=== PATIENT | female | born 1935 | race Caucasian/White ===

== ENCOUNTER 2019-12-01 20:45 | Inpatient (IN) | payer MEDICARE, OTHER ==
[~2019-12-01] VITALS: Ht 152.4 cm; Wt 89.8 kg
[2019-12-01] MEDS ORDERED: ACETAMINOPHEN 325 MG TAB PO ONE (22:00)
[2019-12-01 22:57] LABS: BILIRUBIN,URINE NEGATIVE (NEGATIVE); CLARITY,URINE CLEAR (CLEAR); COLOR,URINE YELLOW (YELLOW); KETONES,URINE NEGATIVE (NEGATIVE); LEUKOCYTE ESTERASE ,URINE SMALL (NEGATIVE); NITRITE,URINE NEGATIVE (NEGATIVE); PROTEIN,URINE DIPSTICK 2+ (NEGATIVE); URINE UROBILINOGEN 0.2 mg/dL (0.2 - 1)
[2019-12-01 23:06] LABS: BASOPHILS % 0.2 % (0.0-1.0); HEMATOCRIT 29.8 % (34.2-44.1); HEMOGLOBIN 10.6 g/dL (12.0-16.0); LYMPHOCYTES # (AUTO) 1.1 (1.0-3.2); LYMPHOCYTES % 12.5 % (18.0-39.1); MEAN CORPUSCULAR HEMOGLOBIN 33.3 pg (28-32); MEAN CORPUSCULAR HGB CONC 35.6 g/dL (31-35); MEAN CORPUSCULAR VOLUME 93.7 fL (81-99); MONOCYTES # (AUTO) 1.2 (0.2-0.8); MONOCYTES % 14.2 % (4.4-11.3); NEUTROPHILS # (AUTO) 6.2 (2.1-6.9); NEUTROPHILS % 72.3 % (38.7-80.0); PLATELET COUNT 285 x10e3/uL (140-360); RED BLOOD COUNT 3.18 x10e6/uL (3.6-5.1); RED CELL DISTRIBUTION WIDTH 12.7 % (11.7-14.4)
[2019-12-01 23:08] LABS: BACTERIA,URINE FEW /HPF; EPITHELIAL CELLS,URINE FEW /LPF
[2019-12-01 23:27] LABS: ALANINE AMINOTRANSFERASE 31 IU/L (0-55); ALBUMIN 2.8 g/dL (3.5-5.0); ALBUMIN/GLOBULIN RATIO 0.7 (0.8-2.0); ALKALINE PHOSPHATASE 71 IU/L (40-150); ANION GAP 15.2 mmol/L (8-16); BLOOD UREA NITROGEN 9 mg/dL (7-26); BUN/CREATININE RATIO 12 (6-25); CALCIUM 8.4 mg/dL (8.4-10.2); CARBON DIOXIDE 21 mmol/L (22-29); CHLORIDE 92 mmol/L (98-107); CREATINE KINASE 171 IU/L (29-168); CREATININE, SERUM 0.77 mg/dL (0.57-1.11); EST GLOMERULAR FILTRATION RATE > 60 ML/MIN (60-); GLUCOSE 134 mg/dL (74-118); POTASSIUM 3.2 mmol/L (3.5-5.1); SODIUM 125 mmol/L (136-145)
--- NOTE | 2019-12-01 23:45 | Diagnostic Imaging Report ---
EXAMINATION: CHEST SINGLE (PORTABLE) INDICATION: Short of breath COMPARISON: None FINDINGS: TUBES and LINES: None. LUNGS: Bilateral mid/lower lung haziness. Prominent central pulmonary vasculature. PLEURA: No pleural effusion or pneumothorax. HEART AND MEDIASTINUM: Cardiac size is mildly enlarged. Aortic calcifications. BONES AND SOFT TISSUES: Fixation hardware in the left proximal humerus. No acute osseous lesion. Soft tissues are unremarkable. UPPER ABDOMEN: No free air under the diaphragm. IMPRESSION: Bilateral mid/lower lung haziness can be due to atelectasis or pneumonia. Lung evaluation limited due to radiographic technique and patient body habitus. Mild cardiomegaly and pulmonary vascular congestion. Signed by: Percy Jensen DO on 12/01/2019 11:41 PM
--- NOTE | 2019-12-01 23:51 | Emergency Department Note ---
History of Present Illnes History of Present Illness Chief Complaint: COVID PUI History of Present Illness This is a 83 year old female HAS BEEN HAVING CHEST SORENESS, COUGH, CONGESTION, AND FEVER FOR 2 WEEKS, COMES IN TO ED FOR FURTHER MANAGEMENT. STATES ALL HOUSEHOLD HAS TESTED POSITIVE FOR COVID. HOWEVER, PATIENT HERSELF HAS NOT UNDERGONE A TEST TO CONFIRM HER STATUS. RESPIRATIONS EVEN AND UNLABORED, WITH DRY COUGH NOTED, PATIENT VERBALIZES GENERALIZED WEAKNESS AND FEELING TIRED. . Historian: Patient Arrival Mode: Car Onset (how long ago): week(s) (2) Location: CHEST Quality: FEVER, COUGH, CHEST PAIN, SOB, BODY ACHES Radiation: Reports non-radiation Severity: moderate Onset quality: gradual Duration (how long): week(s) (2) Timing of current episode: constant Progression: worsening Context: Reports recent illness, Reports other (EXPOSURE TO MULTIPLE FAMILY MEMEBERS IN SAME HOME WHO ARE POSITIVE FOR COVID 19) Associated symptoms: Reports chest pain, Reports cough, Reports fever/chills, Reports loss of appetite, Reports malaise, Reports shortness of breath, Reports weakness Treatments prior to arrival: none Past Medical/Family History Physician Review I have reviewed the patient's past medical and family history. Any updates have been documented here. Past Medical History Recent Fever: Yes Clinical Suspicion of Infectio: Yes New/Unexplained Change in Ment: Yes Past Medical History: Hypertension, CHF, GA Other Surgery: HIP REPLACEMENT MULTIPLE HEART STENTS Social History Smoking Cessation: Former smoker Counseling Performed: No Alcohol Use: None Any Illegal Drug Use: No Physically hurt or threatened: No Other Any Pre-Existing Lines (PICC,: No Review of Systems Review of Systems Constitutional: Reports as per HPI EENTM: Reports no symptoms Cardiovascular: Reports as per HPI Respiratory: Reports as per HPI Gastrointestinal: Reports no symptoms Genitourinary: Reports no symptoms Musculoskeletal: Reports no symptoms Integumentary: Reports no symptoms Neurological: Reports no symptoms Psychological: Reports no symptoms Endocrine: Reports no symptoms Hematological/Lymphatic: Reports no symptoms Physical Exam Related Data Allergies: Coded Allergies: Penicillins (Verified Adverse Reaction, Severe, RASH, 12/01/19) morphine (Verified Adverse Reaction, Mild, UNCONTROLLED NAUSEA, 12/01/19) Triage Vital Signs Vital Signs Date Time Temp Pulse Resp B/P (MAP) Pulse Ox O2 Delivery O2 Flow Rate FiO2 12/01/19 21:39 100.7 110 22 150/66 95 Room Air Vital signs reviewed: Yes Physical Exam CONSTITUTIONAL Constitutional: Present well-developed, Present well-nourished HENT HENT: Present normocephalic, Present atraumatic, Present oropharynx clear/moist, Present nose normal HENT L/R: Present left ext ear normal, Present right ext ear normal EYES Eyes: Reports PERRL, Reports conjunctivae normal NECK Neck: Present ROM normal PULMONARY Pulmonary: Present effort normal, Present other (DECREASED BS AT BASE BILATERAL) CARDIOVASCULAR Cardiovascular: Present regular rhythm, Present heart sounds normal, Present capillary refill normal, Present tachycardia (110) GASTROINTESTINAL Abdominal: Present soft, Present nontender, Present bowel sounds normal GENITOURINARY Genitourinary: Present exam deferred SKIN Skin: Present warm, Present dry MUSCULOSKELETAL Musculoskeletal: Present ROM normal NEUROLOGICAL Neurological: Present alert, Present oriented x 3, Present no gross motor or sensory deficits PSYCHOLOGICAL Psychological: Present mood/affect normal, Present judgement normal Results Laboratory Result Diagram: 12/01/19224912/01/192249 Laboratory Laboratory Tests Test 12/01/19 22:50 12/01/19 22:30 White Blood Count 8.62 x10e3/uL (4.8-10.8) Red Blood Count 3.18 x10e6/uL (3.6-5.1) Hemoglobin 10.6 g/dL (12.0-16.0) Hematocrit 29.8 % (34.2-44.1) Mean Corpuscular Volume 93.7 fL (81-99) Mean Corpuscular Hemoglobin 33.3 pg (28-32) Mean Corpuscular Hemoglobin Concent 35.6 g/dL (31-35) Red Cell Distribution Width 12.7 % (11.7-14.4) Platelet Count 285 x10e3/uL (140-360) Neutrophils (%) (Auto) 72.3 % (38.7-80.0) Lymphocytes (%) (Auto) 12.5 % (18.0-39.1) Monocytes (%) (Auto) 14.2 % (4.4-11.3) Eosinophils (%) (Auto) 0.0 % (0.0-6.0) Basophils (%) (Auto) 0.2 % (0.0-1.0) Neutrophils # (Auto) 6.2 (2.1-6.9) Lymphocytes # (Auto) 1.1 (1.0-3.2) Monocytes # (Auto) 1.2 (0.2-0.8) Eosinophils # (Auto) 0.0 (0.0-0.4) Basophils # (Auto) 0.0 (0.0-0.1) Absolute Immature Granulocyte (auto 0.07 x10e3/uL (0-0.1) Sodium Level 125 mmol/L (136-145) Potassium Level 3.2 mmol/L (3.5-5.1) Chloride Level 92 mmol/L (98-107) Carbon Dioxide Level 21 mmol/L (22-29) Anion Gap 15.2 mmol/L (8-16) Blood Urea Nitrogen 9 mg/dL (7-26) Creatinine 0.77 mg/dL (0.57-1.11) Estimat Glomerular Filtration Rate > 60 ML/MIN (60-) BUN/Creatinine Ratio 12 (6-25) Glucose Level 134 mg/dL (74-118) Calcium Level 8.4 mg/dL (8.4-10.2) Total Bilirubin 0.4 mg/dL (0.2-1.2) Aspartate Amino Transf (AST/SGOT) 46 IU/L (5-34) Alanine Aminotransferase (ALT/SGPT) 31 IU/L (0-55) Alkaline Phosphatase 71 IU/L (40-150) Creatine Kinase 171 IU/L (29-168) Creatine Kinase MB 1.10 ng/mL (0-5.0) Troponin I 0.030 ng/mL (0-0.300) Total Protein 6.9 g/dL (6.5-8.1) Albumin 2.8 g/dL (3.5-5.0) Globulin 4.1 g/dL (2.3-3.5) Albumin/Globulin Ratio 0.7 (0.8-2.0) Urine Color Yellow (YELLOW) Urine Clarity Clear (CLEAR) Urine pH 7 (5 - 7) Urine Specific [place] 1.020 (1.010-1.025) Urine Protein 2+ (NEGATIVE) Urine Glucose (UA) Negative (NEGATIVE) Urine Ketones Negative (NEGATIVE) Urine Blood Small (NEGATIVE) Urine Nitrite Negative (NEGATIVE) Urine Bilirubin Negative (NEGATIVE) Urine Urobilinogen 0.2 mg/dL (0.2 - 1) Urine Leukocyte Esterase Small (NEGATIVE) Urine RBC 6-10 /HPF (0-5) Urine WBC 11-20 /HPF (0-5) Urine Epithelial Cells Few /LPF (NONE) Urine Bacteria Few /HPF (NONE) Lab results reviewed: Yes Imaging Imaging results reviewed: Yes Impressions Procedure: [id number] DX/CHEST SINGLE (PORTABLE) Exam Date: 12/01/19 Exam Time: 2223 REPORT STATUS: Signed EXAMINATION: CHEST SINGLE (PORTABLE) INDICATION: Short of breath COMPARISON: None FINDINGS: TUBES and LINES: None. LUNGS: Bilateral mid/lower lung haziness. Prominent central pulmonary vasculature. PLEURA: No pleural effusion or pneumothorax. HEART AND MEDIASTINUM: Cardiac size is mildly enlarged. Aortic calcifications. BONES AND SOFT TISSUES: Fixation hardware in the left proximal humerus. No acute osseous lesion. Soft tissues are unremarkable. UPPER ABDOMEN: No free air under the diaphragm. IMPRESSION: Bilateral mid/lower lung haziness can be due to atelectasis or pneumonia. Lung evaluation limited due to radiographic technique and patient body habitus. Mild cardiomegaly and pulmonary vascular congestion. Signed by: Nancy Jensen DO on 12/01/2019 11:41 PM Dictated By: NANCY JENSEN DO 40 Transcribed By: GHADA on 12/01/192340 COPY TO: KRZYSZTOF GHOTRA MD~ Procedures 12 Lead ECG Interpretation ECG Interpretation : ECG: ECG 1 Dining Host: Interpreted by ED physician Date: Dec 01, 2019 Time: 22:56 Rhythm: sinus rhythm Rate: normal BPM: 90 QRS axis: normal ST segments normal: Yes T waves normal: Yes Q waves: V1, V2, V3 Clinical Impression: abnormal ECG Assessment & Plan Medical Decision Making MDM PT WITH COVID SYMPTOMS, PT TACHYPNEIC WITH WALKING AND OXYGEN SATURATION DROPS T O 89% CBC, CMP, EKG, CARDIAC ENZYMES, CXR, COVID 19, UA, ORDERED TO EVAL FOR COVID 19, VIRAL PNEUMONIA, LEUKOCYTOSIS, ELECTROLYTE ABNORMALITY, MYOCARDIAL INFARCTION, UTI TYLENOL 975 MG PO ORDERED I SPOKE WITH DR GARRETT, ADMIT INPATIENT COVID BED I SPOKE WITH DR GOODE AND LEFT A MESSAGE FOR DR MURILLO Assessment & Plan Final Impression: (1) COVID-19 (2) UTI (urinary tract infection) Depart Disposition: ADMITTED Last Vital Signs Date Time Temp Pulse Resp B/P (MAP) Pulse Ox O2 Delivery O2 Flow Rate FiO2 12/01/19 23:37 99.2 12/01/19 23:07 89 21 94 Room Air Medications in the ED Acetaminophen 975 mg ONCE ONCE PO ; Start 12/01/19 at 22:00; Stop 12/01/19 at 23:39; Status DC KRZYSZTOF GHOTRA MD Dec 01, 2019 23:51
[2019-12-02] VITALS (9 sets, daily range): BP systolic 132–188; BP diastolic 75–99
[2019-12-02] MEDS ORDERED: CEFTRIAXONE SOD 1 GM/NS 50 ML 50 ML IV ONE
[2019-12-02] MEDS ORDERED: AZITHROMYCIN 500MG/NS 250 ML 250 ML IV ONE
[2019-12-02] MEDS ORDERED: AZITHROMYCIN 500MG/SOD CHL 0.9% 250ML BAG IV SCH (00:15)
[2019-12-02] MEDS ORDERED: SODIUM CHLORIDE 0.9% 1000ML 1,000 ML IV ONE (00:15)
[2019-12-02] MEDS ORDERED: CEFTRIAXONE SOD 1 GRAM/0.9% SOD CHL 50ML BAG IV SCH (00:15)
[2019-12-02] MEDS: DEXAMETHASONE SOD PHOS 10 MG/1 ML VIAL IV SCH ×2 (01:08→23:50)
[2019-12-02] MEDS ORDERED: POTASSIUM CHLORIDE 20 MEQ TAB CR PO STA (01:11)
[2019-12-02] MEDS: ENOXAPARIN SOD INJ 40 MG/0.4 ML SYR SC SCH ×3 (01:12→15:57)
[2019-12-02] MEDS ORDERED: POTASSIUM CHLORIDE 20 MEQ TAB CR PO ONE (01:24)
--- NOTE | 2019-12-02 01:30 | NUR ---
Received patient from the ER via stretcher. Patient is alert and oriented. Assisted to bathroom with walker. Patient transferred to bed via wheelchair. Patient is on telemetry with continuous pulse oximeter and O2 at 2L/min. Oriented patient to room. Call light within reached. All consults has been notified according to report by Aneudy from ER.
--- NOTE | 2019-12-02 04:52 | NUR ---
PATIENT COMPLAIN OF THE IV PUMP COMING OFF BECAUSE SHE MOVING HER RIGHT ARM. SHE STATES SHE IS RIGHT HANDED AND SHE MOVES HER RIGHT ARM ALOT. PATIENT IV ON SALINE LOCKED AT THIS TIME.
--- NOTE | 2019-12-02 06:08 | NUR ---
PATIENT CANNOT REMEMBER HOME MEDICATIONS. CALLED PATIENT DAUGHTER FOR LIST, NO ANSWER VOICEMAIL LEFT.
[2019-12-02 06:32] LABS: CREATINE KINASE MB 2.6 ng/mL (0-5.0)
[2019-12-02] MEDS: ACETAMINOPHEN 325 MG TAB PO PRN (08:39)
[2019-12-02] MEDS ORDERED: LIPITOR20 MG PO (08:58)
[2019-12-02] MEDS ORDERED: ISOSORBIDE MONO30 MG PO (08:58)
[2019-12-02] MEDS ORDERED: ASPIRIN81 MG PO (08:58)
[2019-12-02] MEDS ORDERED: PLAVIX75 MG PO (08:58)
[2019-12-02] MEDS ORDERED: LEVOTHYROXINE50 MCG PO (08:58)
[2019-12-02] MEDS ORDERED: FUROSEMIDE40 MG PO (08:58)
[2019-12-02] MEDS ORDERED: LOSARTAN POTAS100 MG PO (08:58)
[2019-12-02] MEDS ORDERED: ROPINIROLE HC0.25 MG PO (08:58)
[2019-12-02] MEDS ORDERED: METOPROLOL TART50 MG PO (08:58)
[2019-12-02] MEDS: NITROGLYCERIN 0.4 MG SUBL SL PRN (09:14)
--- NOTE | 2019-12-02 10:16 | NUR ---
Patient is requesting to be a DNR. Dr. Landa will be placing the order, this show card writer will be making sure the patient and doctor signed the form.
--- NOTE | 2019-12-02 12:24 | Consultation ---
DATE OF CONSULTATION: Pulmonary Consultation The patient of Dr. Germain and Dr. Llamas. 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 Cough for a period of 2 weeks. Temperature on admission was 100.7. She has had a history of hypertension, heart failure, history of old [place] with stent. Usually active. ALLERGIES: TO PENICILLIN AND MORPHINE. MEDICATIONS: Include metoprolol, Levoxyl, aspirin, Lipitor, ISMO, Plavix, Lasix, ropinirole, and losartan. SOCIAL HISTORY: She is an ex-smoker, but smoked only a pack a week, quit 30 years ago. Born in [place], [place]. FAMILY HISTORY: Positive multiple members with COVID-19. PHYSICAL EXAMINATION: GENERAL: Moderately obese white female, sitting on the commode. No acute distress. VITAL SIGNS: Temperature 97.8, T-max 100.7, pulse 100, and blood pressure 155/98. HEAD: Normocephalic and atraumatic. EYES: Extraocular movements intact. LUNGS: Clear. HEART: Regular rhythm. ABDOMEN: Nontender. EXTREMITIES: Nonedematous. IMPRESSION: Presumed COVID-19 pneumonia with vague interstitial infiltrates. PLAN: To continue supportive care. The patient requests do not intubate order, but is okay with CPR if necessary. Thank you for this kind referral. MD JERICHO Romero/MEGANL /[id number]
[2019-12-02] MEDS: METOPROLOL TARTRATE 50 MG TAB PO SCH ×2 (15:57→21:27)
--- NOTE | 2019-12-02 16:15 | Consultation ---
DATE OF CONSULTATION: Cardiology Consultation REASON FOR CONSULTATION: Chest pain. HISTORY OF PRESENT ILLNESS: This is an 83-year-old woman who has a history of coronary artery disease, status post prior percutaneous coronary intervention, hypertension, hypothyroidism, and congestive heart failure, who presented to the emergency department with chest discomfort, cough, congestion, and fever. She was found to have COVID-19 viral pneumonia. Her chest pain was mildly relieved with nitroglycerin today. She denies any current ongoing chest discomfort. Her pain was described as a central chest discomfort, mild to moderate in severity and occurred at rest, nonexertional, nonradiating, described as a pressure. No other exacerbating or relieving factors. REVIEW OF SYSTEMS: A 12-point review of system was conducted, is negative except as stated above in the HPI. PAST MEDICAL HISTORY: As stated above in the HPI. PAST SURGICAL HISTORY: Percutaneous coronary intervention. PAST FAMILY HISTORY: Noncontributory to current illness. SOCIAL HISTORY: Former smoker. No current illicit drug, alcohol, or tobacco use. ALLERGIES: PENICILLINS, MORPHINE. MEDICATIONS: See medication reconciliation form. PHYSICAL EXAMINATION: VITAL SIGNS: Temperature is 98.1, heart rate is 103, respirations are 18, blood pressure is 132/75, oxygen saturation 100% on 2 L nasal cannula. GENERAL: Well-appearing white woman, in no apparent distress. Alert and oriented x3. HEAD: Normocephalic and atraumatic. EYES: Extraocular movements are intact. Conjunctivae clear. NECK: No JVD. No bruits. CARDIOVASCULAR: Regular rate and rhythm. LUNGS: Clear to auscultation. ABDOMEN: Soft, nontender and nondistended. EXTREMITIES: No clubbing, cyanosis, or edema. VASCULAR: 2+ pulses. SKIN: Warm, dry and intact. NEUROLOGIC: No focal deficits noted. LABORATORY DATA: Reviewed. Hemoglobin is 10.6. Troponin negative x2. Sodium is 125, potassium 3.2. Coronavirus PCR was detected. Chest x-ray shows bilateral infiltrates, mild cardiomegaly, pulmonary vascular congestion. IMPRESSION: 1. Precordial pain. 2. Viral pneumonia due to COVID-19. 3. Hypertension. 4. Congestive heart failure. 5. Coronary artery disease. 6. Obesity. 7. Hyponatremia. 8. Hypokalemia. 9. Congestive heart failure. RECOMMENDATIONS: 1. Continue current cardiovascular medications and diuresis. 2. Continue supportive care for viral pneumonia and COVID-19. There is no evidence of acute coronary syndrome. The patient has a stable cardiac status. DO TERI Ibarra/MODL /[id number]
--- NOTE | 2019-12-02 16:46 | NUR ---
consult This is an 83-year-old woman who has a history of coronary artery disease, status post prior percutaneous coronary intervention, hypertension, hypothyroidism, and congestive heart failure, who presented to the emergency department with chest discomfort, cough, congestion, and fever. She was found to have COVID-19 viral pneumonia. Her chest pain was mildly relieved with nitroglycerin today. She denies any current ongoing chest discomfort. Her pain was described as a central chest discomfort, mild to moderate in severity and occurred at rest, nonexertional, nonradiating, described as a pressure. No other exacerbating or relieving factors. REVIEW OF SYSTEMS: A 12-point review of system was conducted, is negative except as stated above in the HPI. PAST MEDICAL HISTORY: As stated above in the HPI. PAST SURGICAL HISTORY: Percutaneous coronary intervention. PAST FAMILY HISTORY: Noncontributory to current illness. SOCIAL HISTORY: Former smoker. No current illicit drug, alcohol, or tobacco use. ALLERGIES: PENICILLINS, MORPHINE. [id number]
[2019-12-02 18:09] LABS: CREATINE KINASE MB 8.5 ng/mL (0-5.0)
--- NOTE | 2019-12-02 18:21 | NUR ---
Patient troponin called from lab with critical level of 1.5. Dr. Germain and Dr. Augustine (covering for Dr. Witt) both made aware. Dr. Germain requested Dr. Augustine take it from here. Dr. Augustine has yet to respond to be at this time. Will pass on during shift change.
--- NOTE | 2019-12-02 20:34 | NUR ---
Spoke with Dr. Kavon rose regarding patient's abnormal Troponin I result. No new orders. Patient is not complaining of chest pain at this time.
[2019-12-02] MEDS ORDERED: ATORVASTATIN 20 MG TAB PO SCH (21:00)
--- OUTSIDE RECORDS SUMMARY | 2019-12-02 21:01 | XMS REPORT | Clinical Summary ---
Author Author [facility] Address Unknown Phone Unavailable Care Team Providers Care Resident Associate Name Role Phone Britton Germain MD PCP Allergies Comments Active Allergy Reactions Severity Noted Date Adhesive Tape-Silicones Itching, Rash Low 2018 Unknown reaction Codeine 06/09/2018 Unknown reaction Morphine 06/09/2018 Unknown reaction Penicillins 06/09/2018 Medications End Date Status Medication Sig Dispensed Refills Start Date Active furosemide (LASIX) 20 mg Take 20 mg by 0 tablet mouth daily. Active rOPINIRole (REQUIP) 0.5 Take 0.5 mg 0 MG tablet by mouth nightly. Active aspirin (ECOTRIN) 81 MG Take 81 mg by 0 enteric coated tablet mouth daily. Active clopidogrel (PLAVIX) 75 Take 75 mg by 0 mg tablet mouth daily. Active atorvastatin (LIPITOR) 40 Take 40 mg by 0 MG tablet mouth nightly. Active levothyroxine (SYNTHROID, Take 50 mcg 0 LEVOXYL) 50 mcg tablet by mouth daily. Active losartan (COZAAR) 100 MG Take 100 mg 0 tablet by mouth daily. Active Problems Problem Noted Date Unstable angina 06/09/2018 Social History Date Tobacco Use Types Packs/Day Years Used Never Smoker Smokeless Tobacco: Never Used Drinks/Week oz/Week Comments Alcohol Use No Alcohol Habits Answer Date Recorded How often do you have a drink containing alcohol? Never 06/09/2018 How many drinks containing alcohol do you have on No t asked a typical day when you are drinking? How often do you have six or more drinks on one Not asked occasion? Sex Assigned at Date Recorded Not on file Industry Job Start Date Occupation Not on file Not on file Not on file Travel End Travel History Travel Start No recent travel history available. Last Filed Vital Signs Not on file Plan of Treatment Health Maintenance Due Date Last Done Comments FABIANAGLES VACCINES (#1) 1984 65+ PNEUMOCOCCAL VACCINE 12/13/1999 (1 of 2 - PCV13) INFLUENZA VACCINE 12/03/2019 Implants Device Identifier Shelf Expiration Date Model / Serial / L ot Implanted Type Area Manufactur er 10/31/2018 [id number] / / [id number] Device Vasclr Clsr Vasoactive Cardiovasc N/A: N/A Intstnl Peptd 6fr Angio-Seal - ular [id number] Implants Implanted: 06/11/2018 at [facility] (Quantity not on file) [id number] / / Xience Alpine Everolimus Eluting IPM STENTS Coronary Stent System 2.75 Mm X 33 Mm / Rapid-Exchange - [id number] Implanted: Qty: 1 on 06/11/2018 by Zelalem De MD at [facility] Results Not on fileafter 11/30/2018 Insurance Type Payer Benefit Subscriber ID Effective Phone Address Plan / Dates Group HMO CIGNA [employer]SPRING CIGNA xxxxxxxxx 2018-P [facility] Advance Directives For more information, please contact: [phone] 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
--- OUTSIDE RECORDS SUMMARY | 2019-12-02 21:02 | XMS REPORT | Continuity of Care Document ---
Author Author [facility] t Organization [facility] Address [address] [place] [address] Phone Unavailable Care Team Providers Care Machine Stoppage Frequency Checker Name Role Phone Marcellus HERRERA, Jorge Jarquin PCP Emelia GHOTRA Attphys Unavailable Problems Condition Name Condition Details Condition Category Status Onset Date Resolution Date Last Treatment Date Treating Clinician Comments Source Unstable angina Unstable angina Disease Active 2018-06-09 00:00:00 Jason Olsenist Allergies, Adverse Reactions, Alerts Allergy Name Allergy Type Status Severity Reaction(s) Onset Date Inacti ve Date Treating Clinician Comments Source Adhesive Tape-Silicones Propensity to adverse reactions to drug Act linnea Itching, Rash 2018-06-09 00:00:00 Jason [facility] Codeine Propensity to adverse reactions to drug Active 2018-06-09 00:00:00 Unknown reaction Gomez [facility] Morphine Propensity to adverse reactions to drug Active 2018-06-09 00:00:00 Unknown reaction Gomez [facility] Penicillins Propensity to adverse reactions to drug Active 2018-06-09 00:00:00 Unknown reaction Jason O[address] Social History Social Habit Start Date Stop Date Quantity Comments Source History SDOH Alcohol Std Drinks Gomez [facility] History SDOH Alcohol Binge Gomez [facility] Sex Assigned At Doc fitzgerald [employer] [facility] Alcohol intake 2018-06-22 00:00:00 2018-06-22 00:00:00 Current non-drinker of alcohol (finding) Gomez [facility] History SDOH Alcohol Frequency 2018-06-09 00:00:00 2018-06-09 00:00:0 0 1 Jason Olsenist Smoking Status Start Date Stop Date Source Never smoker Jason Verma t Medications Ordered Medication Name Filled Medication Name Start Date Stop Da te Current Medication? Ordering Clinician Indication Dosage Frequency Signature (SIG) Comments Components Source furosemide (LASIX) 20 mg tablet 2018-06-12 15:15:50 Yes 20mg QD Take 20 mg by mouth daily. Jason Mansfield rOPINIRole (REQUIP) 0.5 MG tablet 2018-06-12 15:15:50 Yes .5mg QD Take 0.5 mg by mouth nightly. Jason morris aspirin (ECOTRIN) 81 MG enteric coated tablet 2018-06-12 15:15:5 0 Yes 81mg QD Take 81 mg by mouth daily. Rosi Mansfield clopidogrel (PLAVIX) 75 mg tablet 2018-06-12 15:15:50 Yes 75mg QD Take 75 mg by mouth daily. Jason Mansfield atorvastatin (LIPITOR) 40 MG tablet 2018-06-12 15:15:50 Yes 40mg QD Take 40 mg by mouth nightly. Jason harris levothyroxine (SYNTHROID, LEVOXYL) 50 mcg tablet 2018-06-12 15:15:50 Yes 50ug QD Take 50 mcg by mouth daily. Jason Mansfield losartan (COZAAR) 100 MG tablet 2018-06-12 15:15:50 Yes 100mg QD Take 100 mg by mouth daily. Jason Mansfield Procedures This patient has no known procedures. Plan of Care Planned Activity Planned Date Details Comments Source Future Scheduled Test 2019-12-03 00:00:00 INFLUENZA VACCINE [code = INFLUENZA VACCINE] Jason Mansfield Future Scheduled Test 1999-12-13 00:00:00 65+ PNEUMOCOCCAL V ACCINE (1 of 2 - PCV13) [code = 65+ PNEUMOCOCCAL VACCINE (1 of 2 - PCV13)] Jason Mansfield Future Scheduled Test 1984 00:00:00 SHINGLES VACCINES (#1) [code = SHINGLES VACCINES (#1)] Jason Mansfield Results Test Description Test Time Test Comments Results Result Comments Source CHEST SINGLE (PORTABLE) 2019-12-01 23:40:00 [facility] [address] [address] Patient Name: BETH MARCUS MR #: [id number] : 1935 Age/Sex: 83/F Req #: [id number] Adm Physician: Ordered by: KRZYSZTOF GHOTRA MD Report #: [id number] Location: ER Room/Bed: Procedure: [id number] DX/CHEST SINGLE (PORTABLE) Exam Date: 12/01/19 Exam Time: 2223 REPORT STATUS: Signed EXAMINATION: CHEST SINGLE (PORTABLE) INDICATION: Short of breath COMPARISON: None FINDINGS: TUBES and LINES: None. LUNGS: Bilateral mid/lower lung haziness. Prominent central pulmonary vasculature. PLEURA: No pleural effusion or pneumothorax. HEART AND MEDIASTINUM: Cardiac size is mildly enlarged. Aortic calcifications. BONES AND SOFT TISSUES: Fixation hardware in the left proximal humerus. No acute osseous lesion. Soft tissues are unremarkable. UPPER ABDOMEN: No free air under the diaphragm. IMPRESSION: Bilateral mid/lower lung haziness can be due to atelectasis or pneumonia. Lung evaluation limited due to radiographic technique and patient body habitus. Mild cardiomegaly and pulmonary vascular congestion. Signed by: Percy Jensen DO on 12/01/2019 11:41 PM Dictated By: PERCY JENSEN DO 40 Transcribed By: GHADA on 12/01/192340 COPY TO: KRZYSZTOF GHOTRA MD
--- OUTSIDE RECORDS SUMMARY | 2019-12-02 21:02 | XMS REPORT | Clinical Summary ---
Author Author [facility] Address Unknown Phone Unavailable Care Team Providers Care Resaw Machine Operator Name Role Phone Britton Germain MD PCP [...] ot Implanted Type Area Manufactur er 10/31/2018 [id number] / / [id number] Device Vasclr Clsr Vasoactive Cardiovasc N/A: N/A Intstnl Peptd 6fr Angio-Seal - ular [id number] Implants Implanted: 06/11/2018 at [facility] (Quantity not on file) [id number] / / Xience Alpine Everolimus Eluting IPM STENTS Coronary Stent System 2.75 Mm X 33 Mm / Rapid-Exchange - [id number] Implanted: Qty: 1 on 06/11/2018 by Zelalem De MD at [facility] Results Not on fileafter 12/01/2018 Insurance Type Payer Benefit Subscriber ID Effective Phone Address Plan / Dates Group HMO CIGNA [employer] CIGNA xxxxxxxxx 2018-P [facility] Advance Directives For more information, please contact: [phone] 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
[2019-12-02] MEDS: ATORVASTATIN 40 MG TAB PO SCH (21:27)
[2019-12-02] MEDS: ASPIRIN 81 MG CHEW TAB PO SCH (21:27)
[2019-12-02] MEDS: CEFTRIAXONE SOD 1 GRAM/0.9% SOD CHL 50ML BAG IV SCH (21:28)
[2019-12-02] MEDS: AZITHROMYCIN 500MG/SOD CHL 0.9% 250ML BAG IV SCH (21:59)
[2019-12-02] MEDS: ROPINIROLE HCL 0.25 MG TAB PO SCH (21:59)
[2019-12-03] VITALS (9 sets, daily range): BP systolic 135–171; BP diastolic 67–84
[2019-12-03] MEDS: NITROGLYCERIN 0.4 MG SUBL SL PRN (05:12)
[2019-12-03] MEDS: LEVOTHYROXINE SODIUM 50 MCG TAB PO SCH (05:53)
[2019-12-03] MEDS ORDERED: SINGULAIR10 MG PO (05:54)
--- NOTE | 2019-12-03 06:00 | NUR ---
BP checked 122/64 [facility]. Seen by Dr. Foy. New orders received.
[2019-12-03 06:17] LABS: BASOPHILS % 0.1 % (0.0-1.0); HEMATOCRIT 30.9 % (34.2-44.1); HEMOGLOBIN 10.9 g/dL (12.0-16.0); LYMPHOCYTES # (AUTO) 0.9 (1.0-3.2); MEAN CORPUSCULAR HEMOGLOBIN 33.9 pg (28-32); MEAN CORPUSCULAR HGB CONC 35.3 g/dL (31-35); MONOCYTES # (AUTO) 0.3 (0.2-0.8); MONOCYTES % 2.5 % (4.4-11.3); NEUTROPHILS # (AUTO) 11.2 (2.1-6.9); NEUTROPHILS % 89.6 % (38.7-80.0); PLATELET COUNT 340 x10e3/uL (140-360); RED BLOOD COUNT 3.22 x10e6/uL (3.6-5.1); RED CELL DISTRIBUTION WIDTH 12.8 % (11.7-14.4)
[2019-12-03 06:54] LABS: ALANINE AMINOTRANSFERASE 40 IU/L (0-55); ALBUMIN 2.5 g/dL (3.5-5.0); ALBUMIN/GLOBULIN RATIO 0.6 (0.8-2.0); ALKALINE PHOSPHATASE 72 IU/L (40-150); ANION GAP 13.3 mmol/L (8-16); BLOOD UREA NITROGEN 9 mg/dL (7-26); BUN/CREATININE RATIO 12 (6-25); CALCIUM 8.8 mg/dL (8.4-10.2); CARBON DIOXIDE 24 mmol/L (22-29); CHLORIDE 96 mmol/L (98-107); CREATININE, SERUM 0.73 mg/dL (0.57-1.11); EST GLOMERULAR FILTRATION RATE > 60 ML/MIN (60-); GLUCOSE 146 mg/dL (74-118); POTASSIUM 4.3 mmol/L (3.5-5.1); SODIUM 129 mmol/L (136-145)
--- NOTE | 2019-12-03 08:02 | Progress Note ---
DATE: SUBJECTIVE: The patient is an 83-year-old female with a history of congestive heart failure, coronary artery disease, status post stent. The patient was found to have COVID-19 viral pneumonia. Did have chest pains and came into the emergency room today. She still complains of chest pain. Nitroglycerin relieved her chest pain. The patient is currently chest pain free. OBJECTIVE: VITAL SIGNS: Temperature 97.6, pulse of 89, respirations 16, blood pressure is 156/84, and pulse oximetry of 100%. HEENT: Normocephalic and atraumatic. Pupils are reactive. CVS: S1 and S2 normal. Regular rate and rhythm. ABDOMEN: Soft and nontender. EXTREMITIES: No clubbing. No cyanosis. No edema. IMAGING STUDIES: Done from the shows mild cardiomegaly and pulmonary vascular congestion. Microbiology; blood cultures are negative. Urine cultures are negative. LABORATORY DATA: Today's white count is up to 12.49, hemoglobin of 10.9, hematocrit of 30.9. Chemistries are pending. Yesterday's potassium is 3.2 and a sodium of 124. Urine with rbc's 6 to 10 and white count 11 to 20. Laboratory studies also show the troponin was elevated at 1.507. ASSESSMENT: Ms. Abi Lozano with. 1. Non ST-segment elevation myocardial infarction. 2. Congestive heart failure. 3. COVID-19 pneumonia. 4. Hyponatremia. 5. Hypokalemia. 6. Restless legs syndrome. 7. Hyperlipidemia. PLAN: Continue with enoxaparin b.i.d. The patient is currently on losartan, isosorbide, furosemide, blood pressure, clopidogrel and metoprolol. For her cardiac conditions, we will continue on her home medications. Further recommendation per clinical course. The patient's echo has not been done. Do an echo if okay with Cardiology. Further recommendation per clinical course. We will keep the patient in-house. MD EUGENE Kearney/MODL /[id number]
[2019-12-03] MEDS: FUROSEMIDE 40 MG TAB PO SCH (08:05)
[2019-12-03] MEDS: CLOPIDOGREL BISULFATE 75 MG TAB PO SCH (08:23)
[2019-12-03] MEDS: ENOXAPARIN SOD INJ 40 MG/0.4 ML SYR SC SCH ×2 (08:23→16:52)
[2019-12-03] MEDS: MONTELUKAST SODIUM 10 MG TAB PO SCH (08:23)
[2019-12-03] MEDS: ISOSORBIDE MONONITRATE 30 MG TAB CR PO SCH (09:22)
[2019-12-03] MEDS: METOPROLOL TARTRATE 50 MG TAB PO SCH ×3 (09:22→21:45)
[2019-12-03] MEDS: LOSARTAN POTASSIUM 100 MG TAB PO SCH (09:22)
--- NOTE | 2019-12-03 09:41 | Diagnostic Imaging Report ---
EXAMINATION: CHEST SINGLE (PORTABLE) INDICATION: Respiratory failure. COMPARISON: 12/01/2019. FINDINGS: TUBES and LINES: None. LUNGS: No significant interval change in bilateral mid and lower lung haziness. PLEURA: No pleural effusion or pneumothorax. HEART AND MEDIASTINUM: The cardiomediastinal silhouette is unremarkable. Aortic calcifications. BONES AND SOFT TISSUES: No acute osseous lesion. Soft tissues are unremarkable. UPPER ABDOMEN: No free air under the diaphragm. IMPRESSION: No significant interval change in bilateral mid and lower lung haziness which may represent atelectasis and/or pneumonia in the proper clinical setting. Signed by: Carlos Lafleur MD on 12/03/2019 9:38 AM
--- NOTE | 2019-12-03 18:30 | Consultation ---
DATE OF CONSULTATION: 12/02/2019 REASON FOR CONSULTATION: COVID-19. HISTORY OF PRESENT ILLNESS: This is an 83-year-old white female, very pleasant with history of coronary artery disease, hypertension, comes in the emergency room with chest discomfort, congestion, and fever. She was found to have positive COVID-19. She is telling me her was positive more than a week ago. The patient was fine doing well until she had chest pain, so she came here where she is being admitted. The patient has been seen by Pulmonary. PAST MEDICAL HISTORY: As above. PAST SURGICAL HISTORY: As above. ALLERGIES: NKA. SOCIAL HISTORY: There is no smoking, drug abuse, or alcohol abuse. FAMILY HISTORY: Otherwise unremarkable. LABORATORY DATA: White count 3.6, hemoglobin of 10.6. Her sodium 125, potassium 3.2, creatinine 0.77. PHYSICAL EXAMINATION: GENERAL: She is currently alert, oriented, does not seem to be in acute distress. VITAL SIGNS: Stable. Currently afebrile. HEENT: She is not icteric. NECK: Supple. CHEST: Clear. HEART: S1, S2. No murmur. ABDOMEN: Soft. Bowel sounds present. EXTREMITIES: No edema. SKIN: No rash. IMPRESSION: 1. Chest pain, rule out cardiac event. 2. The patient could have community-acquired pneumonia from coronavirus disease-19, present on admission; however, the patient is not hypoxemic. She is saturating well on room air. RECOMMENDATIONS: We will put her on Rocephin and azithromycin, can discontinue dexamethasone. Pulmonary evaluation. Cardiac evaluation as ordered. We will follow. MD ROSA Dash/BRENT /[id number]
--- NOTE | 2019-12-03 19:00 | NUR ---
RECEIVED REPORT. PATIENT LAYING SEMI FOWLERS IN BED, AAOX3, RR EVEN AND NON-LABORED, SOB WITH EXERTION. NO S/SX OF DISTRESS NOTED. LEFT PT LAYING SEMI FOWLERS IN BED, BED IN LOW LOCKED POSITION, SIDE RAILS UPX2, CALL LIGHT AND PHONE WITHIN REACH.
[2019-12-03] MEDS: ASPIRIN 81 MG CHEW TAB PO SCH (21:45)
[2019-12-03] MEDS: ROPINIROLE HCL 0.25 MG TAB PO SCH (21:45)
[2019-12-03] MEDS: ATORVASTATIN 40 MG TAB PO SCH (21:45)
[2019-12-03] MEDS: CEFTRIAXONE SOD 1 GRAM/0.9% SOD CHL 50ML BAG IV SCH (21:45)
[2019-12-03] MEDS: AZITHROMYCIN 500MG/SOD CHL 0.9% 250ML BAG IV SCH (22:21)
[2019-12-04] VITALS (7 sets, daily range): BP systolic 98–171; BP diastolic 61–90
[2019-12-04] MEDS: LEVOTHYROXINE SODIUM 50 MCG TAB PO SCH (05:53)
--- NOTE | 2019-12-04 05:57 | Progress Note ---
DATE: 12/03/2019 SUBJECTIVE: is doing well. There is no new complaint. Her chest pain is better, but still present. PHYSICAL EXAMINATION: GENERAL: She is currently alert, oriented. VITALS: Stable, currently afebrile. HEENT: She is not icteric. NECK: Supple. CHEST: Clear. HEART: S1-S2. ABDOMEN: Soft. Bowel sounds present. EXTREMITIES: No edema. SKIN: No rash. IMPRESSION: 1. Nro-QI-izanibjww myocardial infarction. 2. Congestive heart failure. 3. COVID-19, not hypoxemic from hyponatremia. 4. Community-acquired pneumonia. Continue Rocephin and continue azithromycin, three days of azithromycin and 5 days of Rocephin. Discontinue Decadron. From Infectious Disease point of view, the patient is stable. Whenever Cardiology workup is cleared, she is stable to be discharged from Infectious Disease. MD ROSA Dash/BRENT /[id number]
[2019-12-04] MEDS: FUROSEMIDE 40 MG TAB PO SCH (08:24)
[2019-12-04] MEDS: ISOSORBIDE MONONITRATE 30 MG TAB CR PO SCH (08:24)
[2019-12-04] MEDS: LOSARTAN POTASSIUM 100 MG TAB PO SCH (08:24)
[2019-12-04] MEDS: METOPROLOL TARTRATE 50 MG TAB PO SCH ×3 (08:24→23:09)
[2019-12-04] MEDS: ENOXAPARIN SOD INJ 40 MG/0.4 ML SYR SC SCH ×2 (08:25→17:04)
[2019-12-04] MEDS: CLOPIDOGREL BISULFATE 75 MG TAB PO SCH (08:25)
[2019-12-04] MEDS: MONTELUKAST SODIUM 10 MG TAB PO SCH (08:25)
[2019-12-04] MEDS: NYSTATIN SUSPENSION 5 ML UDC PO SCH ×4 (08:51→23:09)
--- NOTE | 2019-12-04 09:17 | Progress Note ---
DATE: SUBJECTIVE: An 83-year-old female who came in with chest pain. The patient does not have any chest pain today. The last episode was about 24 hours ago. She has not been taking any nitroglycerin. No shortness of breath. Does have some discomfort and generalized malaise and fatigue. PHYSICAL EXAMINATION: VITAL SIGNS: Temperature is 98.0, pulse of 84, respirations of 18, blood pressure is 171/81, pulse oximetry of 97%. HEENT: Normocephalic and atraumatic. Pupils are reactive. LUNGS: Decreased air entry. Positive for crackles at the lower bases. EXTREMITIES: No clubbing. No cyanosis. Positive for trace edema. IMAGING STUDIES: Done from the 1st shows bilateral lower lung haziness, which may represent atelectasis and pneumonia. The patient's blood cultures have been so far negative. LABORATORY VALUES: White count was 12.49 yesterday, hemoglobin of 10.9, hematocrit of 30.9. Chemistries; sodium of 129, potassium of 4.3, BUN of 9, creatinine of 0.73. Serology; coronavirus detected. ASSESSMENT: Ms. Abi Lozano with: 1. Non ST-segment elevation myocardial infarction and troponin leak. 2. COVID-19 pneumonia. 3. Congestive heart failure. 4. Hyponatremia. 5. Hypokalemia. 6. Hyperlipidemia. PLAN: Echocardiogram to be done. A chest x-ray to be done. Currently, the patient is on azithromycin and Rocephin, which will be continued. The patient is also on clopidogrel and aspirin. We will continue to monitor the patient. Discharge depending on x-rays and also echocardiogram. MD EUGENE Kearney/MODL /[id number]
--- NOTE | 2019-12-04 10:34 | Diagnostic Imaging Report ---
EXAMINATION: CHEST SINGLE (PORTABLE) INDICATION: Evaluation for pneumonia COMPARISON: None FINDINGS: TUBES and LINES: None. LUNGS: There is multifocal patchy interstitial and airspace opacities particularly in the lower lobes. PLEURA: Trace bilateral pleural effusion. HEART AND MEDIASTINUM: There is mild cardiomegaly. The mediastinal contours otherwise within normal limits with atherosclerotic calcification of thoracic aorta. BONES AND SOFT TISSUES: No acute osseous lesion. Soft tissues are unremarkable. UPPER ABDOMEN: No free air under the diaphragm. IMPRESSION: 1. Patchy interstitial and airspace opacities particularly in the lower lobes which may represent pulmonary edema and/or developing multifocal infection in the proper clinical setting. 2. Mild cardiomegaly. Signed by: Carlos Lafleur MD on 12/04/2019 10:31 AM
--- NOTE | 2019-12-04 13:37 | NUR ---
INFECTIOUS DISEASE PROGRESS NOTE DR OLIVAREZ SUBJECTIVE: There is no new complaint. Her chest pain is better, but still present. PHYSICAL EXAMINATION: GENERAL: She is currently alert, oriented. VITALS: Stable, currently afebrile. HEENT: She is not icteric. NECK: Supple. CHEST: Clear. HEART: S1-S2. ABDOMEN: Soft. Bowel sounds present. EXTREMITIES: No edema. SKIN: No rash. RADIOLOGY: REVIEWED LABS: REVIEWED IMPRESSION & PLAN : 1. Arz-WA-mycwdmaag myocardial infarction. 2. Congestive heart failure. 3. COVID-19, not hypoxemic from hyponatremia. 4. Community-acquired pneumonia. Continue Rocephin and continue azithromycin, three days of azithromycin and 5 days of Rocephin. Discontinue Decadron. From Infectious Disease point of view, the patient is stable. Whenever Cardiology workup is cleared, she is stable to be discharged from Infectious Disease. PT SEEN AND EVALUATED BY DR OLIVAREZ
[2019-12-04] MEDS: ACETAMINOPHEN 325 MG TAB PO PRN (14:32)
--- NOTE | 2019-12-04 17:59 | NUR ---
Patient was stable and vitals all WNL during this shift. Patient complained of "sores in mouth and thrush", patient was assessed, thrush was noted on the sides of the mouth. Dr. Foy was called, he ordered Nystatin 5 mL QID. Patient has been given 3 doses thus far and states "it feels better." Patient also complained of a cough, Dr. Foy ordered Tessalon Perles TID. First dose will be given tonight at 2100. Patient also complained of feeling "hot and sweaty", patient's room temperature was however on the highest it could be. Patient's daughter called to inform this technical document writer, this technical document writer explained the room temperature to the daughter, who stated she understood and told her mother to suggest it become cooler. Patient agreed, room temperature has been turned down. Her actual temperature has remained WNL all day after asking for it to be checked multiple times today. She also asked that her oxygen saturations be checked while was assessing her, they were and she was 100% on room air, after she had walked from the bathroom to her chair. Will continue to closely monitor and report to oncoming shift.
[2019-12-04] MEDS: ASPIRIN 81 MG CHEW TAB PO SCH (19:39)
[2019-12-04] MEDS: ATORVASTATIN 40 MG TAB PO SCH (19:39)
[2019-12-04] MEDS: BENZONATATE 100 MG CAP PO SCH (19:39)
[2019-12-04] MEDS: ROPINIROLE HCL 0.25 MG TAB PO SCH (19:39)
--- NOTE | 2019-12-04 19:39 | NUR ---
RECEIVED REPORT. PATIENT LAYING SEMI FOWLERS IN BED, AAOX3, RR EVEN AND NON-LABORED, SOB WITH EXERTION. NO S/SX OF DISTRESS NOTED. LEFT PT LAYING SEMI FOWLERS IN BED, BED IN LOW LOCKED POSITION, SIDE RAILS UPX2, CALL LIGHT AND PHONE WITHIN REACH. PT'S FAMILY PROVIDED SNACKS AND WERE DELIVERED A THIS TIME.
[2019-12-04] MEDS: CEFTRIAXONE SOD 1 GRAM/0.9% SOD CHL 50ML BAG IV SCH (21:23)
[2019-12-04] MEDS: AZITHROMYCIN 500MG/SOD CHL 0.9% 250ML BAG IV SCH (23:09)
[2019-12-05] VITALS (8 sets, daily range): BP systolic 100–184; BP diastolic 55–88
[2019-12-05] MEDS: LEVOTHYROXINE SODIUM 50 MCG TAB PO SCH (05:41)
[2019-12-05] MEDS: NYSTATIN SUSPENSION 5 ML UDC PO SCH ×5 (05:41→21:53)
[2019-12-05 06:54] LABS: ALANINE AMINOTRANSFERASE 38 IU/L (0-55); ALBUMIN 2.4 g/dL (3.5-5.0); ALBUMIN/GLOBULIN RATIO 0.6 (0.8-2.0); ALKALINE PHOSPHATASE 74 IU/L (40-150); ANION GAP 13.6 mmol/L (8-16); BLOOD UREA NITROGEN 11 mg/dL (7-26); BUN/CREATININE RATIO 15 (6-25); CALCIUM 8.1 mg/dL (8.4-10.2); CARBON DIOXIDE 24 mmol/L (22-29); CHLORIDE 96 mmol/L (98-107); CREATININE, SERUM 0.71 mg/dL (0.57-1.11); EST GLOMERULAR FILTRATION RATE > 60 ML/MIN (60-); GLUCOSE 89 mg/dL (74-118); POTASSIUM 3.6 mmol/L (3.5-5.1); SODIUM 130 mmol/L (136-145)
[2019-12-05] MEDS: FUROSEMIDE 40 MG TAB PO SCH (08:30)
[2019-12-05] MEDS: LOSARTAN POTASSIUM 100 MG TAB PO SCH (08:30)
[2019-12-05] MEDS: ISOSORBIDE MONONITRATE 30 MG TAB CR PO SCH (08:30)
[2019-12-05 08:31] LABS: BASOPHILS % 0.1 % (0.0-1.0); EOSINOPHILS % 0.2 % (0.0-6.0); HEMATOCRIT 29.1 % (34.2-44.1); HEMOGLOBIN 10.2 g/dL (12.0-16.0); LYMPHOCYTES # (AUTO) 1.1 (1.0-3.2); LYMPHOCYTES % 10.2 % (18.0-39.1); MEAN CORPUSCULAR HEMOGLOBIN 32.7 pg (28-32); MEAN CORPUSCULAR HGB CONC 35.1 g/dL (31-35); MEAN CORPUSCULAR VOLUME 93.3 fL (81-99); MONOCYTES # (AUTO) 1.2 (0.2-0.8); NEUTROPHILS # (AUTO) 8.6 (2.1-6.9); NEUTROPHILS % 77.6 % (38.7-80.0); PLATELET COUNT 428 x10e3/uL (140-360); RED BLOOD COUNT 3.12 x10e6/uL (3.6-5.1); RED CELL DISTRIBUTION WIDTH 12.8 % (11.7-14.4)
[2019-12-05] MEDS: METOPROLOL TARTRATE 50 MG TAB PO SCH ×2 (08:31→16:46)
[2019-12-05] MEDS: CLOPIDOGREL BISULFATE 75 MG TAB PO SCH (08:31)
[2019-12-05] MEDS: ENOXAPARIN SOD INJ 40 MG/0.4 ML SYR SC SCH ×2 (08:31→16:47)
[2019-12-05] MEDS: BENZONATATE 100 MG CAP PO SCH ×3 (08:31→21:54)
[2019-12-05] MEDS: MONTELUKAST SODIUM 10 MG TAB PO SCH (08:31)
--- NOTE | 2019-12-05 16:29 | NUR ---
INFECTIOUS DISEASE PROGRESS NOTE DR OLIVAREZ SUBJECTIVE: There is no new complaint. Her chest pain is better, but still present. he patient is an 83-year-old female with a history of congestive heart failure, coronary artery disease, status post stent. The patient was found to have COVID-19 viral pneumonia. Did have chest pains and came into the emergency room today. She still complains of chest pain. Nitroglycerin relieved her chest pain. The patient is currently chest pain free. OBJECTIVE: VITAL SIGNS: Temperature 97.6, pulse of 89, respirations 16, blood pressure is 156/84, and pulse oximetry of 100%. HEENT: Normocephalic and atraumatic. Pupils are reactive. CVS: S1 and S2 normal. Regular rate and rhythm. ABDOMEN: Soft and nontender. EXTREMITIES: No clubbing. No cyanosis. No edema. IMAGING STUDIES: Done from the shows mild cardiomegaly and pulmonary vascular congestion. Microbiology; blood cultures are negative. Urine cultures are negative. LABORATORY DATA: white count is up to 12.49, hemoglobin of 10.9, hematocrit of 30.9. Chemistries are pending. Yesterday's potassium is 3.2 and a sodium of 124. Urine with rbc's 6 to 10 and white count 11 to 20. Laboratory studies also show the troponin was elevated at 1.507. ASSESSMENT: Ms. Abi Lozano with. 1. Non ST-segment elevation myocardial infarction. 2. Congestive heart failure. 3. COVID-19 pneumonia. 4. Hyponatremia. 5. Hypokalemia. 6. Restless legs syndrome. RADIOLOGY: REVIEWED LABS: REVIEWED IMPRESSION & PLAN : 1. Udt-UB-gvlpwfyzz myocardial infarction. 2. Congestive heart failure. 3. COVID-19, not hypoxemic from hyponatremia. 4. Community-acquired pneumonia. doing well can dc home no abx [id number] po daily 60 days
--- NOTE | 2019-12-05 20:10 | Progress Note ---
DATE: 12/05/2019 Cardiology Progress Note SUBJECTIVE: The patient was discussed with nursing staff. No chest pain is reported but the patient does have shortness of breath. OBJECTIVE: VITAL SIGNS: Temperature 99 degrees, pulse 118, respiratory rate 19, blood pressure 124/80, oxygen saturation 95% on 1 L nasal cannula. The patient was not examined due to isolation for COVID-19. CARDIAC MEDICATIONS: 1. Enoxaparin 20 mg subcu b.i.d. 2. Plavix 75 mg p.o. daily. 3. Isosorbide mononitrate 30 mg p.o. daily. 4. Furosemide 40 mg p.o. daily. 5. Levothyroxine 50 mcg p.o. daily. 6. Atorvastatin 40 mg p.o. at bedtime. 7. Aspirin 81 mg p.o. daily. 8. Losartan 100 mg p.o. daily. 9. Metoprolol tartrate 75 mg p.o. b.i.d. LABORATORY DATA: WBC 11.05, hemoglobin 10.2, hematocrit 29.1, platelets 428. Sodium 130, potassium 3.6, chloride 96, CO2 of 24, BUN 11, creatinine 0.71. Troponin 0.455. TELEMETRY: Personally reviewed and interpreted revealing sinus tachycardia. IMPRESSION: 1. Yok-YL-uydwjdjmx myocardial infarction. 2. COVID-19 viral pneumonia. 3. Coronary artery disease prior PCI. 4. Hypertension. 5. Congestive heart failure. 6. Hypothyroidism. RECOMMENDATIONS: The patient is currently chest pain free. Given the patient's COVID-19 pneumonia, recommend medical management. Continue aspirin 81 mg p.o. daily and Plavix 75 mg p.o. daily. Consolidate metoprolol to 75 mg p.o. b.i.d., unable to further titrate due to hypotension earlier this morning. Losartan may need to be decreased to accommodate further increase in beta blockade. Check fasting lipid panel to titrate statin therapy. Echocardiogram was done with normal LV size and hyperdynamic LV systolic function. Monitor the patient closely on telemetry while admitted. Continue supportive care. Thank you for this consult. We will continue to follow. Katie Grant MD ABS/MODL /[id number]
[2019-12-05] MEDS: ROPINIROLE HCL 0.25 MG TAB PO SCH (21:53)
[2019-12-05] MEDS: ASPIRIN 81 MG CHEW TAB PO SCH (21:53)
[2019-12-05] MEDS: ATORVASTATIN 40 MG TAB PO SCH (21:53)
[2019-12-05] MEDS: CEFTRIAXONE SOD 1 GRAM/0.9% SOD CHL 50ML BAG IV SCH (21:54)
--- NOTE | 2019-12-05 22:25 | Progress Note ---
DATE: SUBJECTIVE: The patient is doing better today. Not on any oxygen. She came in with chest pain and shortness of breath. PHYSICAL EXAMINATION: VITAL SIGNS: Temperature 99, pulse of 118, blood pressure 124/80, respiratory rate of 18, and O2 saturation 95%. CHEST: Clear to auscultation bilaterally. HEART: S1, S2 audible. She is only on 1 L nasal cannula and saturating 95%. ABDOMEN: Soft. EXTREMITIES: No pedal edema. NEUROLOGIC: Awake and alert. LABORATORY DATA: Reviewed. White cell count 11,000, hemoglobin 10.2, platelets 428. Chemistries within normal limits. Blood cultures, no growth from 11/30. On 12/03, chest x-ray showing bilateral interstitial opacities. ASSESSMENT/PLAN: Ms. Lozano is an 83-year-old female with COVID-19 pneumonia. The patient is improving, not on oxygen. Continue the patient on antibiotics. Oxygen as needed to keep the O2 saturation more than or equal to 92% if she is requiring only 1 L. She is on Lovenox for deep vein thrombosis prophylaxis. MD RAMYA Johnson/BRENT /[id number]
[2019-12-05] MEDS: AZITHROMYCIN 500MG/SOD CHL 0.9% 250ML BAG IV SCH (22:33)
[2019-12-06] VITALS: BP 159/69
[2019-12-06 04:00] VITALS: BP 152/63
[2019-12-06] MEDS: METOPROLOL TARTRATE 50 MG TAB PO SCH ×2 (06:00→08:42)
[2019-12-06] MEDS: LEVOTHYROXINE SODIUM 50 MCG TAB PO SCH (06:08)
[2019-12-06] MEDS: NYSTATIN SUSPENSION 5 ML UDC PO SCH ×3 (06:08→13:00)
[2019-12-06 06:54] LABS: CHOL/HDL RATIO 2.5 (3.0-3.6)
[2019-12-06] MEDS: ISOSORBIDE MONONITRATE 30 MG TAB CR PO SCH (08:41)
[2019-12-06] MEDS: LOSARTAN POTASSIUM 100 MG TAB PO SCH (08:41)
[2019-12-06] MEDS: FUROSEMIDE 40 MG TAB PO SCH (08:41)
[2019-12-06] MEDS: CLOPIDOGREL BISULFATE 75 MG TAB PO SCH (08:42)
[2019-12-06] MEDS: MONTELUKAST SODIUM 10 MG TAB PO SCH (08:42)
[2019-12-06] MEDS: BENZONATATE 100 MG CAP PO SCH (08:42)
[2019-12-06] MEDS: ENOXAPARIN SOD INJ 40 MG/0.4 ML SYR SC SCH (08:42)
[2019-12-06 08:52] VITALS: BP 115/95
[2019-12-06 09:00] VITALS: BP 115/95
[2019-12-06] MEDS ORDERED: NYSTATIN 15 GM POWDER UD BTL TOP SCH (09:00)
[2019-12-06 12:20] VITALS: BP 133/62
--- NOTE | 2019-12-06 13:58 | Progress Note ---
DATE: 12/06/2019 Cardiology Progress note SUBJECTIVE: The patient was discussed with nursing staff. The patient did not report chest pain, but continues to have shortness of breath. GI bleeding is noted. OBJECTIVE: VITAL SIGNS: Temperature 98.7 degrees, pulse 78, respiratory rate 19, blood pressure 133/62, and oxygen saturation 95%. The patient was not examined due to isolation for COVID-19. CARDIAC MEDICATIONS: Metoprolol tartrate 75 mg p.o. b.i.d., Plavix 75 mg p.o. daily, losartan 100 mg p.o. daily, isosorbide mononitrate 30 mg p.o. daily, furosemide 40 mg p.o. daily, levothyroxine 50 mcg p.o. daily, atorvastatin 40 mg p.o. at bedtime, and aspirin 81 mg p.o. daily. LABORATORY DATA: LDL 25, cholesterol 79, triglycerides 117, and HDL 31. TELEMETRY: Telemetry was personally reviewed, interpreted, revealing sinus tachycardia. IMPRESSION: 1. Non-ST elevation myocardial infarction. 2. Coronavirus disease-19 viral pneumonia. 3. Coronary artery disease, status post prior PCI. 4. Hypertension. 5. Congestive heart failure. 6. Hypothyroidism. RECOMMENDATIONS: The patient is currently chest pain free. Given the patient's COVID-19 pneumonia, recommend medical management. Continue aspirin and Plavix. Continue current antihypertensive therapy. Blood pressure is well controlled. LDL is at goal. Continue statin. Echocardiogram was reviewed. The patient is normal LV size and hyperdynamic LV systolic function. Recommend discussion of invasive coronary evaluation after the patient has recovered from her COVID-19 pneumonia. Continue supportive care. Monitor patient closely on telemetry while admitted. Thank you for this consult. We will continue to follow. Katie Grant MD ABS/MODL /[id number]
--- NOTE | 2019-12-06 18:04 | Progress Note ---
DATE: SUBJECTIVE: Ms. Lozano is doing well. There is no new complaint. Discussed with medical team. REVIEW OF SYSTEMS: HEENT: Negative. PULMONARY: Negative. CARDIAC: Negative. PHYSICAL EXAMINATION: GENERAL: She is currently alert, oriented. VITAL SIGNS: Stable, afebrile. HEENT: She is not icteric. NECK: Supple. CHEST: Clear. HEART: S1-S2. No murmur. ABDOMEN: Soft. Bowel sounds present. No tenderness. EXTREMITIES: No edema. SKIN: No rash. IMPRESSION AND PLAN: Non ST-elevation myocardial infarction, stable. Coronavirus disease-19, Crohn disease, and congestive heart failure. From Infectious Disease point of view, can be discharged home, 10 days from onset, will not infectious. No need to check PCR. No medication from Infectious Disease point of view, however, she is to be discharged with her Cardiology team as necessary. Discussed with the patient. MD ROSA Dash/BRENT /[id number]
--- NOTE | 2019-12-07 05:57 | Discharge Summary ---
DISCHARGE DIAGNOSES: 1. COVID pneumonia. 2. Keo-QB-ierjjgw elevated myocardial infarction. 3. Coronary artery disease. 4. Hypertension. 5. Acute respiratory failure with hypoxia. HISTORY OF PRESENT ILLNESS AND HOSPITAL COURSE: See hospital chart for full details. The patient is a lady, who presented with COVID pneumonia, fever, shortness of breath, where she was noticed to be slightly hypoxic, resolved fairly quickly with O2 nasal cannula. She was brought and placed on antibiotic therapy . She ruled in for [id number] elevated VT. She was having some episodes of chest pain. The patient was seen by Cardiology, where she was medically managed. At the time of discharge, the patient was on room air, doing very well. No fevers. She was able to be discharged home with medical management. Please see discharge MAR for the rest. She will follow up in 1 to 2 weeks with me as well as with Cardiology. Please see hospital chart for full details. MD ZANDER Flores/BRENT /[id number]
== END 2019-12-06 15:34 | disposition home or self-care (01) | DRG 177 ==
LOC: ER 21:03 → ERHOLD 12-02 00:12 → IMCU 12-02 01:54
PROVIDERS: ADMIT Internal Medicine; ATTEND Internal Medicine
DX: U07.1 COVID-19 (principal); J12.89 Other viral pneumonia; I21.4 Non-ST elevation (NSTEMI) myocardial infarction; J96.01 Acute respiratory failure with hypoxia; N39.0 Urinary tract infection, site not specified; E87.1 Hypo-osmolality and hyponatremia; K50.90 Crohn's disease, unspecified, without complications; D64.9 Anemia, unspecified; I11.0 Hypertensive heart disease with heart failure; I50.9 Heart failure, unspecified; I25.2 Old myocardial infarction; Z95.5 Presence of coronary angioplasty implant and graft; Z87.891 Personal history of nicotine dependence; Z20.828 Contact with and (suspected) exposure to other viral communicable diseases; Z88.5 Allergy status to narcotic agent; Z88.0 Allergy status to penicillin; E66.9 Obesity, unspecified; E87.6 Hypokalemia; G25.81 Restless legs syndrome; E78.5 Hyperlipidemia, unspecified; E03.9 Hypothyroidism, unspecified
CPT/HCPCS: 36415; 71045; 80053; 80061; 81001; 82550; 82553; 83735; 84484; 85025; 87040; 87086; 93005; 93306; 99284; J0456; J0696; J1100; J1650; J7030; U0002

== ENCOUNTER → 2021-02-05 | Outpatient (CLI) | payer MEDICARE ==
[~2021-02-05] MED LIST: ASPIRIN81 MG PO; BUPIVACAINE HCL 0.5% INJ 30 ML VIAL INJ ONE; FUROSEMIDE40 MG PO; ISOSORBIDE MONO30 MG PO; LEVOTHYROXINE50 MCG PO; LIPITOR20 MG PO; LOSARTAN POTAS100 MG PO; METOPROLOL TART50 MG PO; PLAVIX75 MG PO; ROPINIROLE HC0.25 MG PO; SINGULAIR10 MG PO; TESSALON PERLE100 MG PO; [UNRECOGNIZED DRUG - REMARK]
[2021-02-05 13:51] LABS: BASOPHILS # (AUTO) 0.1 (0.0-0.1); BASOPHILS % 1.3 % (0.0-1.0); EOSINOPHILS # (AUTO) 0.2 (0.0-0.4); EOSINOPHILS % 2.9 % (0.0-6.0); HEMATOCRIT 26.9 % (34.2-44.1); HEMOGLOBIN 8.7 g/dL (12.0-16.0); LYMPHOCYTES # (AUTO) 1.6 (1.0-3.2); LYMPHOCYTES % 19.5 % (18.0-39.1); MEAN CORPUSCULAR HEMOGLOBIN 31.4 pg (28-32); MEAN CORPUSCULAR HGB CONC 32.3 g/dL (31-35); MEAN CORPUSCULAR VOLUME 97.1 fL (81-99); MONOCYTES # (AUTO) 1.4 (0.2-0.8); MONOCYTES % 17.4 % (4.4-11.3); NEUTROPHILS # (AUTO) 4.8 (2.1-6.9); NEUTROPHILS % 58.5 % (38.7-80.0); PLATELET COUNT 341 x10e3/uL (140-360); RED BLOOD COUNT 2.77 x10e6/uL (3.6-5.1); RED CELL DISTRIBUTION WIDTH 15.7 % (11.7-14.4)
[2021-02-05 14:08] LABS: ALBUMIN 2.8 g/dL (3.5-5.0); ALBUMIN/GLOBULIN RATIO 0.7 (0.8-2.0); ANION GAP 9.9 mmol/L (8-16); CALCIUM 8.7 mg/dL (8.4-10.2); CREATININE, SERUM 0.75 mg/dL (0.57-1.11); POTASSIUM 3.9 mmol/L (3.5-5.1)
== END ==
LOC: RAD 13:20 → OR 02-11 06:15 → EDSTATUS 02-11 11:30
PROVIDERS: ATTEND Surgery
DX: K81.0 Acute cholecystitis (principal); Z01.810 Encounter for preprocedural cardiovascular examination; Z01.812 Encounter for preprocedural laboratory examination; Z01.818 Encounter for other preprocedural examination; Z20.822 Contact with and (suspected) exposure to COVID-19; Z53.8 Procedure and treatment not carried out for other reasons
CPT/HCPCS: 36415; 71046; 80053; 85025; 93005; U0002

== ENCOUNTER 2021-02-11 07:50 | Inpatient (IN) | payer MEDICARE ==
[~2021-02-11] VITALS: Ht 152.4 cm; Wt 78.0 kg
[~2021-02-11 07:50] MED LIST changes: -BUPIVACAINE HCL 0.5% INJ 30 ML VIAL INJ ONE
[2021-02-11] MEDS: NITROGLYCERIN 0.4 MG SUBL SL PRN ×4 (08:08→21:15)
[2021-02-11] MEDS ORDERED: ONDANSETRON HCL INJ 2MG/ML 2ML 2 MG/ML VIAL IV PRN (08:15)
[2021-02-11] MEDS ORDERED: ASPIRIN 81 MG CHEW TAB PO ONE ×2 (08:15→10:30)
[2021-02-11] MEDS ORDERED: FENTANYL CITRATE/PF 100MCG/2 ML INJ IV PRN (08:15)
[2021-02-11 08:23] LABS: BASOPHILS # (AUTO) 0.1 (0.0-0.1); BASOPHILS % 1.4 % (0.0-1.0); EOSINOPHILS # (AUTO) 0.3 (0.0-0.4); EOSINOPHILS % 3.2 % (0.0-6.0); HEMATOCRIT 29.5 % (34.2-44.1); HEMOGLOBIN 9.4 g/dL (12.0-16.0); LYMPHOCYTES # (AUTO) 1.9 (1.0-3.2); LYMPHOCYTES % 21.9 % (18.0-39.1); MEAN CORPUSCULAR HEMOGLOBIN 30.6 pg (28-32); MEAN CORPUSCULAR HGB CONC 31.9 g/dL (31-35); MEAN CORPUSCULAR VOLUME 96.1 fL (81-99); MONOCYTES # (AUTO) 1.3 (0.2-0.8); MONOCYTES % 15.1 % (4.4-11.3); NEUTROPHILS # (AUTO) 5.1 (2.1-6.9); NEUTROPHILS % 58.1 % (38.7-80.0); PLATELET COUNT 422 x10e3/uL (140-360); RED BLOOD COUNT 3.07 x10e6/uL (3.6-5.1); RED CELL DISTRIBUTION WIDTH 15.5 % (11.7-14.4)
[2021-02-11] MEDS: SODIUM CHLORIDE 0.9% 1000ML 1,000 ML IV SCH ×2 (08:38→14:50)
[2021-02-11 08:46] LABS: ALBUMIN/GLOBULIN RATIO 0.7 (0.8-2.0); ANION GAP 14.8 mmol/L (8-16); CREATININE, SERUM 0.89 mg/dL (0.57-1.11); POTASSIUM 3.8 mmol/L (3.5-5.1)
[2021-02-11] MEDS ORDERED: ASPIRIN 81 MG CHEW TAB ONE (09:52)
[2021-02-11 13:00] LABS: CREATINE KINASE MB 2.7 ng/mL (0-5.0)
[2021-02-11 19:58] LABS: CREATINE KINASE MB 4.4 ng/mL (0-5.0)
[2021-02-11 20:00] VITALS: BP 119/88
[2021-02-11 22:00] VITALS: BP 119/88
[2021-02-11] MEDS: ROPINIROLE HCL 0.25 MG TAB PO SCH (22:50)
[2021-02-12] VITALS: BP 131/65
[2021-02-12 04:00] VITALS: BP 145/66
[2021-02-12] MEDS: SODIUM CHLORIDE 0.9% 1000ML 1,000 ML IV SCH ×2 (05:28→14:29)
[2021-02-12 06:01] LABS: BASOPHILS # (AUTO) 0.1 (0.0-0.1); BASOPHILS % 1.4 % (0.0-1.0); EOSINOPHILS # (AUTO) 0.2 (0.0-0.4); EOSINOPHILS % 2.4 % (0.0-6.0); HEMATOCRIT 26.1 % (34.2-44.1); HEMOGLOBIN 8.6 g/dL (12.0-16.0); LYMPHOCYTES # (AUTO) 1.5 (1.0-3.2); MEAN CORPUSCULAR VOLUME 94.2 fL (81-99); MONOCYTES # (AUTO) 1.3 (0.2-0.8); MONOCYTES % 17.9 % (4.4-11.3); NEUTROPHILS % 56.9 % (38.7-80.0); PLATELET COUNT 383 x10e3/uL (140-360); RED BLOOD COUNT 2.77 x10e6/uL (3.6-5.1); RED CELL DISTRIBUTION WIDTH 15.4 % (11.7-14.4)
[2021-02-12 06:35] LABS: ANION GAP 12.4 mmol/L (8-16); CALCIUM 8.6 mg/dL (8.4-10.2); CREATININE, SERUM 0.74 mg/dL (0.57-1.11); POTASSIUM 3.4 mmol/L (3.5-5.1)
[2021-02-12] MEDS: LEVOTHYROXINE SODIUM 50 MCG TAB PO SCH (07:30)
[2021-02-12 07:43] VITALS: BP 147/64
[2021-02-12 08:00] VITALS: BP 147/64
[2021-02-12] MEDS ORDERED: FUROSEMIDE 40 MG TAB PO SCH (09:00)
[2021-02-12] MEDS ORDERED: ISOSORBIDE MONONITRATE 30 MG TAB CR PO SCH (09:00)
[2021-02-12] MEDS: METOPROLOL TARTRATE 50 MG TAB PO SCH ×2 (09:05→16:57)
[2021-02-12] MEDS: NYSTATIN 15 GM POWDER UD BTL TOP SCH ×2 (09:05→16:57)
[2021-02-12 20:00] VITALS: BP 128/46
[2021-02-12] MEDS: ROPINIROLE HCL 0.25 MG TAB PO SCH (20:58)
[2021-02-12] MEDS: ATORVASTATIN 20 MG TAB PO SCH (20:58)
[2021-02-13] VITALS (8 sets, daily range): BP systolic 111–142; BP diastolic 48–75
[2021-02-13] MEDS: NITROGLYCERIN 0.4 MG SUBL SL PRN ×6 (01:54→13:25)
[2021-02-13] MEDS: NYSTATIN SUSPENSION 5 ML UDC PO SCH ×5 (05:54→20:36)
[2021-02-13] MEDS: LEVOTHYROXINE SODIUM 50 MCG TAB PO SCH (05:54)
[2021-02-13] MEDS: SODIUM CHLORIDE 0.9% 1000ML 1,000 ML IV SCH (05:54)
[2021-02-13 06:40] LABS: ALBUMIN 2.7 g/dL (3.5-5.0); ALBUMIN/GLOBULIN RATIO 0.8 (0.8-2.0); ANION GAP 10.8 mmol/L (8-16); CALCIUM 8.2 mg/dL (8.4-10.2); CREATININE, SERUM 0.76 mg/dL (0.57-1.11); MAGNESIUM 1.9 MG/DL (1.3-2.1); POTASSIUM 3.8 mmol/L (3.5-5.1)
[2021-02-13 08:21] LABS: BASOPHILS # (AUTO) 0.1 (0.0-0.1); BASOPHILS % 1.5 % (0.0-1.0); EOSINOPHILS # (AUTO) 0.2 (0.0-0.4); HEMATOCRIT 25.9 % (34.2-44.1); HEMOGLOBIN 8.2 g/dL (12.0-16.0); LYMPHOCYTES # (AUTO) 1.4 (1.0-3.2); LYMPHOCYTES % 17.8 % (18.0-39.1); MEAN CORPUSCULAR HEMOGLOBIN 31.2 pg (28-32); MEAN CORPUSCULAR HGB CONC 31.7 g/dL (31-35); MEAN CORPUSCULAR VOLUME 98.5 fL (81-99); MONOCYTES # (AUTO) 1.2 (0.2-0.8); NEUTROPHILS % 63.4 % (38.7-80.0); PLATELET COUNT 395 x10e3/uL (140-360); RED BLOOD COUNT 2.63 x10e6/uL (3.6-5.1); RED CELL DISTRIBUTION WIDTH 15.7 % (11.7-14.4)
[2021-02-13] MEDS: METOPROLOL TARTRATE 50 MG TAB PO SCH ×2 (09:00→16:55)
[2021-02-13] MEDS: NYSTATIN 15 GM POWDER UD BTL TOP SCH ×2 (09:00→16:56)
[2021-02-13] MEDS ORDERED: LIDOCAINE HCL 2% LOCAL 20 ML VIAL ONE (11:56)
[2021-02-13] MEDS ORDERED: MIDAZOLAM HCL 2 MG/2 ML VIAL ONE (11:56)
[2021-02-13] MEDS ORDERED: HEPARIN SOD/SOD CHLORIDE 2,000 ML ONE (11:56)
[2021-02-13] MEDS ORDERED: FENTANYL CITRATE/PF 100MCG/2 ML INJ ONE (11:56)
[2021-02-13] MEDS ORDERED: IOPAMIDOL 370 MG/ML 200 ML INFUS..BTL INJ ONE (11:57)
[2021-02-13] MEDS ORDERED: SODIUM CHLORIDE 0.9% 1000ML 1,000 ML ONE (11:57)
[2021-02-13] MEDS ORDERED: NITROGLYCERIN 0.4 MG SUBL ONE ×2 (12:09→12:47)
[2021-02-13] MEDS ORDERED: FUROSEMIDE INJ 10 MG/ML 4 ML VIAL ONE (12:47)
[2021-02-13] MEDS: ASPIRIN 81 MG CHEW TAB PO SCH (13:51)
[2021-02-13] MEDS: ISOSORBIDE MONONITRATE 30 MG TAB CR PO SCH (13:51)
[2021-02-13] MEDS: FUROSEMIDE INJ 10 MG/ML 4 ML VIAL IV SCH (16:55)
[2021-02-13] MEDS: RANOLAZINE 500 MG TABSR PO SCH (16:56)
[2021-02-13] MEDS: ATORVASTATIN 20 MG TAB PO SCH (20:36)
[2021-02-13] MEDS: ROPINIROLE HCL 0.25 MG TAB PO SCH (20:36)
[2021-02-14] VITALS (8 sets, daily range): BP systolic 112–140; BP diastolic 46–80
[2021-02-14] MEDS: NYSTATIN SUSPENSION 5 ML UDC PO SCH ×7 (02:41→20:49)
[2021-02-14] MEDS: LEVOTHYROXINE SODIUM 50 MCG TAB PO SCH (06:30)
[2021-02-14] MEDS: NITROGLYCERIN 0.4 MG SUBL SL PRN ×2 (07:51→09:19)
[2021-02-14] MEDS: NYSTATIN 15 GM POWDER UD BTL TOP SCH ×2 (08:26→16:16)
[2021-02-14] MEDS: ASPIRIN 81 MG CHEW TAB PO SCH (08:26)
[2021-02-14] MEDS: RANOLAZINE 500 MG TABSR PO SCH ×2 (08:26→16:30)
[2021-02-14] MEDS: FUROSEMIDE INJ 10 MG/ML 4 ML VIAL IV SCH ×3 (08:26→16:25)
[2021-02-14] MEDS: METOPROLOL TARTRATE 50 MG TAB PO SCH ×2 (08:27→16:29)
[2021-02-14] MEDS: ISOSORBIDE MONONITRATE 30 MG TAB CR PO SCH (08:27)
[2021-02-14] MEDS: HYDROCODONE/APAP 5MG-325MG TAB PO PRN (10:00)
[2021-02-14] MEDS: BENZONATATE 100 MG CAP PO PRN (12:48)
[2021-02-14] MEDS ORDERED: ONDANSETRON HCL 4 MG ORAL DISINTEGRATING TAB PO PRN (17:15)
[2021-02-14] MEDS: ATORVASTATIN 20 MG TAB PO SCH (20:49)
[2021-02-14] MEDS: ROPINIROLE HCL 0.25 MG TAB PO SCH (20:49)
[2021-02-15] VITALS (8 sets, daily range): BP systolic 114–145; BP diastolic 55–75
[2021-02-15] MEDS: BENZONATATE 100 MG CAP PO PRN (00:24)
[2021-02-15] MEDS: HYDROCODONE/APAP 5MG-325MG TAB PO PRN ×2 (00:59→19:52)
[2021-02-15] MEDS: NYSTATIN SUSPENSION 5 ML UDC PO SCH ×6 (02:00→21:01)
[2021-02-15] MEDS: LEVOTHYROXINE SODIUM 50 MCG TAB PO SCH (06:17)
[2021-02-15] MEDS: NITROGLYCERIN 0.4 MG SUBL SL PRN ×3 (06:23→08:26)
[2021-02-15 07:46] LABS: ALBUMIN 2.6 g/dL (3.5-5.0); ALBUMIN/GLOBULIN RATIO 0.7 (0.8-2.0); ANION GAP 8.6 mmol/L (8-16); BASOPHILS # (AUTO) 0.1 (0.0-0.1); BASOPHILS % 1.4 % (0.0-1.0); CALCIUM 8.1 mg/dL (8.4-10.2); CREATININE, SERUM 0.73 mg/dL (0.57-1.11); EOSINOPHILS # (AUTO) 0.2 (0.0-0.4); EOSINOPHILS % 3.2 % (0.0-6.0); HEMATOCRIT 23.1 % (34.2-44.1); HEMOGLOBIN 7.2 g/dL (12.0-16.0); LYMPHOCYTES # (AUTO) 1.5 (1.0-3.2); MEAN CORPUSCULAR HEMOGLOBIN 30.4 pg (28-32); MEAN CORPUSCULAR HGB CONC 31.2 g/dL (31-35); MEAN CORPUSCULAR VOLUME 97.5 fL (81-99); MONOCYTES # (AUTO) 1.2 (0.2-0.8); MONOCYTES % 17.1 % (4.4-11.3); NEUTROPHILS # (AUTO) 4.1 (2.1-6.9); PLATELET COUNT 327 x10e3/uL (140-360); POTASSIUM 3.6 mmol/L (3.5-5.1); RED BLOOD COUNT 2.37 x10e6/uL (3.6-5.1); RED CELL DISTRIBUTION WIDTH 15.5 % (11.7-14.4)
[2021-02-15] MEDS: FUROSEMIDE INJ 10 MG/ML 4 ML VIAL IV SCH ×2 (07:57→16:19)
[2021-02-15] MEDS: NYSTATIN 15 GM POWDER UD BTL TOP SCH ×2 (07:58→16:18)
[2021-02-15] MEDS: RANOLAZINE 500 MG TABSR PO SCH ×2 (08:37→16:33)
[2021-02-15] MEDS: ASPIRIN 81 MG CHEW TAB PO SCH (08:38)
[2021-02-15] MEDS: ISOSORBIDE MONONITRATE 30 MG TAB CR PO SCH (08:38)
[2021-02-15] MEDS: METOPROLOL TARTRATE 50 MG TAB PO SCH ×2 (08:38→16:33)
[2021-02-15 11:33] LABS: HEMATOCRIT 24.2 % (34.2-44.1); HEMOGLOBIN 7.5 g/dL (12.0-16.0)
[2021-02-15] MEDS ORDERED: SODIUM CHLORIDE 0.9% 250ML 250 ML IV ONE (13:00)
[2021-02-15] MEDS ORDERED: BUPIVACAINE HCL 0.5% INJ 30 ML VIAL INJ ONE (13:20)
[2021-02-15] MEDS ORDERED: HEPARIN SOD/SOD CHLORIDE 1,000 ML ONE (13:38)
[2021-02-15] MEDS ORDERED: SEVOFLURANE INHAL SOLN 250 ML PEN BTL ONE (13:46)
[2021-02-15] MEDS ORDERED: ROCURONIUM BROMIDE 10 MG/ML 5ML VIAL IV ONE (13:46)
[2021-02-15] MEDS ORDERED: PHENYLEPHRINE HCL 1% 10 MG/ML VIAL ONE (13:46)
[2021-02-15] MEDS ORDERED: POVIDONE IODINE 0.05% 0.05 % ML PO ONE (13:46)
[2021-02-15] MEDS ORDERED: EPHEDRINE SULFATE INJ 50 MG/ML VIAL ONE (13:46)
[2021-02-15] MEDS ORDERED: PROPOFOL IV EMULSION 10 MG/ML 20 ML VIAL ONE (13:46)
[2021-02-15] MEDS ORDERED: LIDOCAINE HCL 2% LOCAL INJ 5 ML SDV VIAL INJ ONE (13:46)
[2021-02-15] MEDS ORDERED: ONDANSETRON HCL INJ 2MG/ML 2ML 2 MG/ML VIAL ONE ×2 (13:46→15:48)
[2021-02-15] MEDS ORDERED: LEVOFLOXACIN 500MG/D5W 100ML 100 ML IV ONE (14:14)
[2021-02-15] MEDS ORDERED: ACETAMINOPHEN 1000 MG/100 ML 100 ML IV ONE (14:30)
[2021-02-15] MEDS ORDERED: HYDROMORPHONE 1MG/1ML INJ IV PRN (15:15)
[2021-02-15] MEDS ORDERED: HYDROMORPHONE 1MG/1ML INJ ONE (15:43)
[2021-02-15] MEDS ORDERED: FENTANYL CITRATE/PF 100MCG/2 ML INJ ONE (16:02)
[2021-02-15] MEDS: ATORVASTATIN 20 MG TAB PO SCH (21:00)
[2021-02-15] MEDS: ROPINIROLE HCL 0.25 MG TAB PO SCH (21:00)
[2021-02-16] VITALS (8 sets, daily range): BP systolic 110–132; BP diastolic 48–75
[2021-02-16] MEDS: BENZONATATE 100 MG CAP PO PRN ×2 (00:42→11:20)
[2021-02-16] MEDS: NYSTATIN SUSPENSION 5 ML UDC PO SCH ×6 (01:19→20:34)
[2021-02-16] MEDS: HYDROCODONE/APAP 5MG-325MG TAB PO PRN ×3 (05:07→20:51)
[2021-02-16] MEDS: FUROSEMIDE 40 MG TAB PO SCH ×2 (05:49→16:28)
[2021-02-16] MEDS: NYSTATIN 15 GM POWDER UD BTL TOP SCH ×2 (07:46→16:20)
[2021-02-16] MEDS: METOPROLOL TARTRATE 50 MG TAB PO SCH ×2 (09:00→16:27)
[2021-02-16] MEDS: ISOSORBIDE MONONITRATE 30 MG TAB CR PO SCH (09:00)
[2021-02-16] MEDS: ASPIRIN 81 MG CHEW TAB PO SCH (09:02)
[2021-02-16] MEDS: LEVOTHYROXINE SODIUM 50 MCG TAB PO SCH (09:02)
[2021-02-16] MEDS: RANOLAZINE 500 MG TABSR PO SCH ×2 (09:03→16:28)
[2021-02-16] MEDS: ENOXAPARIN SOD INJ 40 MG/0.4 ML SYR SC SCH (16:32)
[2021-02-16] MEDS: NITROGLYCERIN 0.4 MG SUBL SL PRN ×3 (18:48→20:50)
[2021-02-16] MEDS: ATORVASTATIN 20 MG TAB PO SCH (20:34)
[2021-02-16] MEDS: ROPINIROLE HCL 0.25 MG TAB PO SCH (20:34)
[2021-02-17] VITALS (8 sets, daily range): BP systolic 105–122; BP diastolic 45–64
[2021-02-17] MEDS: NYSTATIN SUSPENSION 5 ML UDC PO SCH ×6 (01:44→21:38)
[2021-02-17] MEDS: ALPRAZOLAM 0.25 MG TAB PO PRN ×2 (06:05→21:38)
[2021-02-17] MEDS: LEVOTHYROXINE SODIUM 50 MCG TAB PO SCH (06:05)
[2021-02-17 06:42] LABS: BASOPHILS % 0.2 % (0.0-1.0); EOSINOPHILS % 0.2 % (0.0-6.0); HEMATOCRIT 23.1 % (34.2-44.1); HEMOGLOBIN 7.4 g/dL (12.0-16.0); LYMPHOCYTES # (AUTO) 1.2 (1.0-3.2); LYMPHOCYTES % 9.4 % (18.0-39.1); MEAN CORPUSCULAR VOLUME 96.7 fL (81-99); MONOCYTES # (AUTO) 1.7 (0.2-0.8); MONOCYTES % 13.2 % (4.4-11.3); NEUTROPHILS # (AUTO) 9.9 (2.1-6.9); NEUTROPHILS % 76.5 % (38.7-80.0); PLATELET COUNT 380 x10e3/uL (140-360); RED BLOOD COUNT 2.39 x10e6/uL (3.6-5.1); RED CELL DISTRIBUTION WIDTH 15.1 % (11.7-14.4)
[2021-02-17 07:11] LABS: ANION GAP 10.7 mmol/L (8-16); CALCIUM 8.5 mg/dL (8.4-10.2); CREATININE, SERUM 0.76 mg/dL (0.57-1.11); POTASSIUM 3.7 mmol/L (3.5-5.1)
[2021-02-17] MEDS ORDERED: FUROSEMIDE 40 MG TAB PO SCH ×4 (08:00→18:30)
[2021-02-17] MEDS: RANOLAZINE 500 MG TABSR PO SCH ×2 (08:19→15:41)
[2021-02-17] MEDS: CLOPIDOGREL BISULFATE 75 MG TAB PO SCH (08:19)
[2021-02-17] MEDS: METOPROLOL TARTRATE 50 MG TAB PO SCH ×2 (08:19→15:41)
[2021-02-17] MEDS: ASPIRIN 81 MG CHEW TAB PO SCH (08:19)
[2021-02-17] MEDS: BENZONATATE 100 MG CAP PO PRN ×2 (08:19→15:55)
[2021-02-17] MEDS: ISOSORBIDE MONONITRATE 30 MG TAB CR PO SCH (08:19)
[2021-02-17] MEDS ORDERED: FUROSEMIDE INJ 10 MG/ML 4 ML VIAL IV SCH (12:15)
[2021-02-17] MEDS: NYSTATIN 15 GM POWDER UD BTL TOP SCH ×2 (13:36→15:28)
[2021-02-17] MEDS: ENOXAPARIN SOD INJ 40 MG/0.4 ML SYR SC SCH (15:41)
[2021-02-17] MEDS: ACETAMINOPHEN 325 MG TAB PO PRN (17:15)
[2021-02-17] MEDS: ROPINIROLE HCL 0.25 MG TAB PO SCH (21:38)
[2021-02-17] MEDS: ATORVASTATIN 20 MG TAB PO SCH (21:38)
[2021-02-18] VITALS (8 sets, daily range): BP systolic 105–141; BP diastolic 44–71
[2021-02-18] MEDS: NYSTATIN SUSPENSION 5 ML UDC PO SCH ×6 (02:00→20:59)
[2021-02-18] MEDS ORDERED: TRIAMCINOLONE ACET 40 MG/ML VIAL IM ONE (05:00)
[2021-02-18] MEDS ORDERED: TRIAMCINOLONE ACET 40 MG/ML VIAL ONE (05:29)
[2021-02-18] MEDS: LEVOTHYROXINE SODIUM 50 MCG TAB PO SCH (07:30)
[2021-02-18] MEDS: ISOSORBIDE MONONITRATE 30 MG TAB CR PO SCH (09:00)
[2021-02-18] MEDS: FUROSEMIDE 40 MG TAB PO SCH ×2 (09:00→17:36)
[2021-02-18] MEDS: ASPIRIN 81 MG CHEW TAB PO SCH (09:00)
[2021-02-18] MEDS: METOPROLOL TARTRATE 50 MG TAB PO SCH ×2 (09:01→17:37)
[2021-02-18] MEDS: NYSTATIN 15 GM POWDER UD BTL TOP SCH ×2 (09:11→17:37)
[2021-02-18] MEDS: RANOLAZINE 500 MG TABSR PO SCH ×2 (09:11→17:37)
[2021-02-18] MEDS: CLOPIDOGREL BISULFATE 75 MG TAB PO SCH (09:11)
[2021-02-18] MEDS: ACETAMINOPHEN 325 MG TAB PO PRN (16:15)
[2021-02-18] MEDS: ENOXAPARIN SOD INJ 40 MG/0.4 ML SYR SC SCH (17:37)
[2021-02-18] MEDS: ATORVASTATIN 20 MG TAB PO SCH (20:59)
[2021-02-18] MEDS: ROPINIROLE HCL 0.25 MG TAB PO SCH (20:59)
[2021-02-19] VITALS (8 sets, daily range): BP systolic 104–149; BP diastolic 55–79
[2021-02-19] MEDS: NYSTATIN SUSPENSION 5 ML UDC PO SCH ×6 (02:00→21:42)
[2021-02-19] MEDS: LEVOTHYROXINE SODIUM 50 MCG TAB PO SCH (05:42)
[2021-02-19 05:46] LABS: BASOPHILS % 0.4 % (0.0-1.0); EOSINOPHILS # (AUTO) 0.1 (0.0-0.4); EOSINOPHILS % 1.1 % (0.0-6.0); HEMATOCRIT 22.5 % (34.2-44.1); HEMOGLOBIN 7.3 g/dL (12.0-16.0); LYMPHOCYTES % 13.6 % (18.0-39.1); MEAN CORPUSCULAR HEMOGLOBIN 30.8 pg (28-32); MEAN CORPUSCULAR HGB CONC 32.4 g/dL (31-35); MEAN CORPUSCULAR VOLUME 94.9 fL (81-99); MONOCYTES # (AUTO) 0.8 (0.2-0.8); MONOCYTES % 10.2 % (4.4-11.3); NEUTROPHILS # (AUTO) 5.5 (2.1-6.9); NEUTROPHILS % 74.3 % (38.7-80.0); PLATELET COUNT 422 x10e3/uL (140-360); RED BLOOD COUNT 2.37 x10e6/uL (3.6-5.1); RED CELL DISTRIBUTION WIDTH 15.1 % (11.7-14.4)
[2021-02-19 06:32] LABS: ALBUMIN 2.3 g/dL (3.5-5.0); ALBUMIN/GLOBULIN RATIO 0.6 (0.8-2.0); ANION GAP 14.2 mmol/L (8-16); CALCIUM 8.2 mg/dL (8.4-10.2); CREATININE, SERUM 0.87 mg/dL (0.57-1.11); MAGNESIUM 1.8 MG/DL (1.3-2.1); POTASSIUM 3.2 mmol/L (3.5-5.1)
[2021-02-19] MEDS: ASPIRIN 81 MG CHEW TAB PO SCH (09:05)
[2021-02-19] MEDS: FUROSEMIDE 40 MG TAB PO SCH ×2 (09:05→17:45)
[2021-02-19] MEDS: CLOPIDOGREL BISULFATE 75 MG TAB PO SCH (09:05)
[2021-02-19] MEDS: METOPROLOL TARTRATE 50 MG TAB PO SCH ×2 (09:05→17:46)
[2021-02-19] MEDS: ISOSORBIDE MONONITRATE 30 MG TAB CR PO SCH (09:05)
[2021-02-19] MEDS: RANOLAZINE 500 MG TABSR PO SCH ×2 (09:06→17:46)
[2021-02-19] MEDS: NITROGLYCERIN 0.4 MG SUBL SL PRN (09:20)
[2021-02-19] MEDS: ENOXAPARIN SOD INJ 40 MG/0.4 ML SYR SC SCH (17:46)
[2021-02-19] MEDS: ROPINIROLE HCL 0.25 MG TAB PO SCH (21:42)
[2021-02-19] MEDS: ATORVASTATIN 20 MG TAB PO SCH (21:42)
[2021-02-20] VITALS (8 sets, daily range): BP systolic 105–138; BP diastolic 45–70
[2021-02-20] MEDS: NYSTATIN SUSPENSION 5 ML UDC PO SCH (02:00)
[2021-02-20] MEDS ORDERED: POTASSIUM CHLORIDE 20 MEQ TAB CR PO ONE (05:00)
[2021-02-20] MEDS: LEVOTHYROXINE SODIUM 50 MCG TAB PO SCH (05:36)
[2021-02-20] MEDS: ACETAMINOPHEN 325 MG TAB PO PRN ×2 (06:00→21:45)
[2021-02-20] MEDS: FUROSEMIDE 40 MG TAB PO SCH (09:21)
[2021-02-20] MEDS: ISOSORBIDE MONONITRATE 30 MG TAB CR PO SCH (09:21)
[2021-02-20] MEDS: ASPIRIN 81 MG CHEW TAB PO SCH (09:21)
[2021-02-20] MEDS: RANOLAZINE 500 MG TABSR PO SCH ×2 (09:22→17:33)
[2021-02-20] MEDS: METOPROLOL TARTRATE 50 MG TAB PO SCH ×2 (09:22→17:33)
[2021-02-20] MEDS: CLOPIDOGREL BISULFATE 75 MG TAB PO SCH (09:22)
[2021-02-20] MEDS: ENOXAPARIN SOD INJ 40 MG/0.4 ML SYR SC SCH (16:42)
[2021-02-20] MEDS: ATORVASTATIN 20 MG TAB PO SCH (20:45)
[2021-02-20] MEDS: ROPINIROLE HCL 0.25 MG TAB PO SCH (20:45)
[2021-02-21 04:00] VITALS: BP 126/45
[2021-02-21] MEDS: LEVOTHYROXINE SODIUM 50 MCG TAB PO SCH (06:23)
[2021-02-21 08:00] VITALS: BP 142/64
[2021-02-21] MEDS: ACETAMINOPHEN 325 MG TAB PO PRN (08:00)
[2021-02-21 08:22] LABS: BASOPHILS # (AUTO) 0.1 (0.0-0.1); BASOPHILS % 0.6 % (0.0-1.0); EOSINOPHILS # (AUTO) 0.1 (0.0-0.4); EOSINOPHILS % 1.2 % (0.0-6.0); HEMATOCRIT 23.7 % (34.2-44.1); HEMOGLOBIN 7.8 g/dL (12.0-16.0); LYMPHOCYTES # (AUTO) 1.5 (1.0-3.2); LYMPHOCYTES % 15.6 % (18.0-39.1); MEAN CORPUSCULAR HEMOGLOBIN 30.6 pg (28-32); MEAN CORPUSCULAR HGB CONC 32.9 g/dL (31-35); MEAN CORPUSCULAR VOLUME 92.9 fL (81-99); MONOCYTES # (AUTO) 1.3 (0.2-0.8); MONOCYTES % 13.5 % (4.4-11.3); NEUTROPHILS # (AUTO) 6.7 (2.1-6.9); NEUTROPHILS % 68.6 % (38.7-80.0); PLATELET COUNT 419 x10e3/uL (140-360); RED BLOOD COUNT 2.55 x10e6/uL (3.6-5.1); RED CELL DISTRIBUTION WIDTH 15.2 % (11.7-14.4)
[2021-02-21] MEDS: METOPROLOL TARTRATE 50 MG TAB PO SCH (08:44)
[2021-02-21] MEDS: FUROSEMIDE 40 MG TAB PO SCH (08:44)
[2021-02-21] MEDS: CLOPIDOGREL BISULFATE 75 MG TAB PO SCH (08:44)
[2021-02-21] MEDS: RANOLAZINE 500 MG TABSR PO SCH (08:44)
[2021-02-21] MEDS: ASPIRIN 81 MG CHEW TAB PO SCH (08:44)
[2021-02-21] MEDS: ISOSORBIDE MONONITRATE 30 MG TAB CR PO SCH (08:44)
[2021-02-21 08:48] VITALS: BP 142/62
[2021-02-21 08:57] LABS: ALBUMIN 2.5 g/dL (3.5-5.0); ALBUMIN/GLOBULIN RATIO 0.7 (0.8-2.0); ANION GAP 14.6 mmol/L (8-16); CALCIUM 9.3 mg/dL (8.4-10.2); CREATININE, SERUM 0.7 mg/dL (0.57-1.11); MAGNESIUM 1.8 MG/DL (1.3-2.1); POTASSIUM 3.6 mmol/L (3.5-5.1)
[2021-02-21 12:00] VITALS: BP 130/55
== END 2021-02-21 13:21 | disposition home or self-care (01) | DRG 417 ==
LOC: ER 08:00 → ERHOLD 08:09 → MED/SURG3 18:31
PROVIDERS: ADMIT Internal Medicine; ATTEND Internal Medicine
PROC: 4A023N7 Measurement of Cardiac Sampling and Pressure, Left Heart, Percutaneous Approach (ICD-10-PCS; 2021-02-13)
PROC: B2111ZZ Fluoroscopy of Multiple Coronary Arteries using Low Osmolar Contrast (ICD-10-PCS; 2021-02-13)
PROC: B2151ZZ Fluoroscopy of Left Heart using Low Osmolar Contrast (ICD-10-PCS; 2021-02-13)
PROC: 0FT44ZZ Resection of Gallbladder, Percutaneous Endoscopic Approach (ICD-10-PCS; principal; 2021-02-15 13:50)
PROC: 0WQF0ZZ Repair Abdominal Wall, Open Approach (ICD-10-PCS; 2021-02-15 13:50)
DX: K80.10 Calculus of gallbladder with chronic cholecystitis without obstruction (principal); I21.4 Non-ST elevation (NSTEMI) myocardial infarction; K42.0 Umbilical hernia with obstruction, without gangrene; Z20.822 Contact with and (suspected) exposure to COVID-19; E78.5 Hyperlipidemia, unspecified; I25.10 Atherosclerotic heart disease of native coronary artery without angina pectoris; E78.00 Pure hypercholesterolemia, unspecified; E03.9 Hypothyroidism, unspecified; D64.9 Anemia, unspecified; F41.9 Anxiety disorder, unspecified; E66.9 Obesity, unspecified; Z68.33 Body mass index [BMI] 33.0-33.9, adult; R09.02 Hypoxemia
CPT/HCPCS: 36415; 71045; 76937; 80048; 80053; 82550; 82553; 82948; 83690; 83735; 83880; 84484; 85014; 85018; 85025; 86850; 86900; 86920; 88304; 93005; 93458; 99152; 99153; 99251; 99285; C1760; C1769; C1894; J1170; J1650; J1940; J1956; J2001; J2250; J2405; J3010; J3301; J7030; Q0162; Q9967

== ENCOUNTER 2021-04-03 18:45 | Observation (INO) | payer MEDICARE ==
[~2021-04-03] VITALS: Ht 152.4 cm; Wt 72.6 kg
[2021-04-03 19:27] LABS: BASOPHILS # (AUTO) 0.1 (0.0-0.1); BASOPHILS % 0.9 % (0.0-1.0); EOSINOPHILS # (AUTO) 0.3 (0.0-0.4); EOSINOPHILS % 2.9 % (0.0-6.0); LYMPHOCYTES # (AUTO) 1.5 (1.0-3.2); LYMPHOCYTES % 17.4 % (18.0-39.1); MEAN CORPUSCULAR HEMOGLOBIN 28.9 pg (28-32); MEAN CORPUSCULAR VOLUME 93.1 fL (81-99); MONOCYTES # (AUTO) 1.5 (0.2-0.8); MONOCYTES % 17.4 % (4.4-11.3); NEUTROPHILS # (AUTO) 5.2 (2.1-6.9); NEUTROPHILS % 61.2 % (38.7-80.0); PLATELET COUNT 406 x10e3/uL (140-360); RED BLOOD COUNT 2.46 x10e6/uL (3.6-5.1); RED CELL DISTRIBUTION WIDTH 15.9 % (11.7-14.4)
[2021-04-03 19:30] LABS: HEMATOCRIT 22.9 % (34.2-44.1); HEMOGLOBIN 7.1 g/dL (12.0-16.0)
[2021-04-03 19:37] LABS: INR 0.93; PROTHROMBIN TIME 13.2 seconds (11.9-14.5)
[2021-04-03 19:38] LABS: PARTIAL THROMBOPLASTIN TIME 27.2 seconds (23.8-35.5)
[2021-04-03 19:44] LABS: ANION GAP 14.5 mmol/L (8-16); CALCIUM 8.8 mg/dL (8.4-10.2); CREATININE, SERUM 0.83 mg/dL (0.57-1.11); POTASSIUM 3.5 mmol/L (3.5-5.1)
[2021-04-03 19:45] LABS: CLARITY,URINE SL CLOUDY (CLEAR); COLOR,URINE YELLOW (YELLOW); KETONES,URINE NEGATIVE (NEGATIVE); LEUKOCYTE ESTERASE ,URINE NEGATIVE (NEGATIVE); NITRITE,URINE NEGATIVE (NEGATIVE); PROTEIN,URINE DIPSTICK NEGATIVE (NEGATIVE); URINE UROBILINOGEN 0.2 mg/dL (0.2 - 1)
[2021-04-03 20:00] VITALS: BP 136/68
[2021-04-03 20:05] LABS: FERRITIN 43.84 ng/mL (4.63-204.00)
[2021-04-03] MEDS ORDERED: ONDANSETRON HCL INJ 2MG/ML 2ML 2 MG/ML VIAL IV PRN (20:15)
[2021-04-03] MEDS ORDERED: SODIUM CHLORIDE FLUSH 10 ML SYR INJ PRN (20:15)
[2021-04-03] MEDS ORDERED: SODIUM CHLORIDE 0.9% 250ML 250 ML IV ONE (20:15)
[2021-04-03] MEDS ORDERED: NITROGLYCERIN0.4 MG SL (22:48)
[2021-04-03] MEDS ORDERED: LASIX80 MG PO (22:48)
[2021-04-03] MEDS ORDERED: RANEXA500 MG PO (22:49)
[2021-04-03 22:55] VITALS: BP 136/68
[2021-04-03] MEDS ORDERED: ROPINIROLE HCL 0.25 MG TAB PO ONE (23:00)
[2021-04-03] MEDS ORDERED: ASPIRIN 81 MG CHEW TAB PO ONE (23:00)
[2021-04-03] MEDS: NITROGLYCERIN 0.4 MG SUBL SL PRN (23:28)
[2021-04-03 23:39] VITALS: BP 136/68
[2021-04-04] VITALS: BP 132/84
[2021-04-04] MEDS: FUROSEMIDE INJ 10 MG/ML 2 ML VIAL IV PRN ×2 (00:36→04:51)
[2021-04-04] MEDS ORDERED: SODIUM CHLORIDE 0.9% 250ML 250 ML ONE (01:51)
[2021-04-04] MEDS: NITROGLYCERIN 0.4 MG SUBL SL PRN ×3 (02:20→06:31)
[2021-04-04 04:58] LABS: BASOPHILS # (AUTO) 0.1 (0.0-0.1); EOSINOPHILS # (AUTO) 0.3 (0.0-0.4); EOSINOPHILS % 3.4 % (0.0-6.0); LYMPHOCYTES # (AUTO) 1.5 (1.0-3.2); LYMPHOCYTES % 18.1 % (18.0-39.1); MEAN CORPUSCULAR HEMOGLOBIN 29.4 pg (28-32); MEAN CORPUSCULAR HGB CONC 33.3 g/dL (31-35); MEAN CORPUSCULAR VOLUME 88.2 fL (81-99); MONOCYTES # (AUTO) 1.4 (0.2-0.8); NEUTROPHILS # (AUTO) 5.1 (2.1-6.9); NEUTROPHILS % 60.1 % (38.7-80.0); PLATELET COUNT 324 x10e3/uL (140-360); RED BLOOD COUNT 3.06 x10e6/uL (3.6-5.1); RED CELL DISTRIBUTION WIDTH 15.4 % (11.7-14.4)
[2021-04-04] MEDS ORDERED: LEVOTHYROXINE SODIUM 50 MCG TAB PO SCH (07:30)
[2021-04-04 09:00] VITALS: BP 138/78
[2021-04-04] MEDS ORDERED: CLOPIDOGREL BISULFATE 75 MG TAB PO SCH (09:00)
[2021-04-04] MEDS ORDERED: ISOSORBIDE MONONITRATE 30 MG TAB CR PO SCH (09:00)
[2021-04-04] MEDS ORDERED: RANOLAZINE 500 MG TABSR PO SCH ×2 (09:00→17:00)
[2021-04-04] MEDS ORDERED: LOSARTAN POTASSIUM 100 MG TAB PO SCH (09:00)
[2021-04-04] MEDS: METOPROLOL TARTRATE 50 MG TAB PO SCH ×2 (09:00→15:29)
[2021-04-04 11:04] VITALS: BP 117/44
[2021-04-04 13:49] LABS: CREATINE KINASE MB 0.9 ng/mL (0-5.0)
[2021-04-04 15:02] VITALS: BP 143/61
[2021-04-04] MEDS ORDERED: ROPINIROLE HCL 0.25 MG TAB PO SCH (21:00)
[2021-04-04] MEDS ORDERED: ASPIRIN 81 MG CHEW TAB PO SCH (21:00)
[2021-04-04] MEDS ORDERED: ATORVASTATIN 20 MG TAB PO SCH (21:00)
[2021-04-05] VITALS: BP 117/54
== END 2021-04-04 18:30 | disposition home or self-care (01) ==
LOC: ER 20:00 → ERHOLD 20:38 → MED/SURG 22:06
PROVIDERS: ADMIT Internal Medicine; ATTEND Internal Medicine
DX: D64.9 Anemia, unspecified (principal); I11.0 Hypertensive heart disease with heart failure; I50.22 Chronic systolic (congestive) heart failure; Z20.822 Contact with and (suspected) exposure to COVID-19; I25.110 Atherosclerotic heart disease of native coronary artery with unstable angina pectoris; E03.9 Hypothyroidism, unspecified
CPT/HCPCS: 36415 ×2; 80048; 81001; 82550; 82553; 82728; 83540; 84466; 84484; 85025 ×2; 85610; 85730; 86850; 86900; 86920; 94799; 99284; G0378 ×2; J1940 ×2; J7050 ×2; P9016 ×2; U0002

== ENCOUNTER 2021-04-30 12:06 | Inpatient (IN) | payer MEDICARE ==
[~2021-04-30] VITALS: Ht 152.4 cm; Wt 68.9 kg
[~2021-04-30 12:06] MED LIST changes: +LASIX80 MG PO; +NITROGLYCERIN0.4 MG SL; +PROPOFOL IV EMULSION 10 MG/ML 20 ML VIAL ONE; +RANEXA500 MG PO
[2021-04-30] MEDS ORDERED: SODIUM CHLORIDE 0.9% 250ML 250 ML IV ONE (12:30)
[2021-04-30 12:41] LABS: BASOPHILS # (AUTO) 0.1 (0.0-0.1); BASOPHILS % 0.9 % (0.0-1.0); EOSINOPHILS # (AUTO) 0.1 (0.0-0.4); EOSINOPHILS % 0.8 % (0.0-6.0); HEMATOCRIT 25.6 % (34.2-44.1); LYMPHOCYTES # (AUTO) 1.9 (1.0-3.2); LYMPHOCYTES % 16.3 % (18.0-39.1); MEAN CORPUSCULAR HGB CONC 31.3 g/dL (31-35); MEAN CORPUSCULAR VOLUME 95.9 fL (81-99); MONOCYTES # (AUTO) 1.5 (0.2-0.8); MONOCYTES % 13.3 % (4.4-11.3); NEUTROPHILS # (AUTO) 7.8 (2.1-6.9); NEUTROPHILS % 68.3 % (38.7-80.0); PLATELET COUNT 347 x10e3/uL (140-360); RED BLOOD COUNT 2.67 x10e6/uL (3.6-5.1); RED CELL DISTRIBUTION WIDTH 19.2 % (11.7-14.4)
[2021-04-30 12:44] LABS: INR 0.95; PROTHROMBIN TIME 13.4 seconds (11.9-14.5)
[2021-04-30 12:45] LABS: PARTIAL THROMBOPLASTIN TIME 23.4 seconds (23.8-35.5)
[2021-04-30 12:52] LABS: ALBUMIN/GLOBULIN RATIO 0.9 (0.8-2.0); ANION GAP 13.7 mmol/L (8-16); CREATININE, SERUM 1.02 mg/dL (0.57-1.11); POTASSIUM 3.7 mmol/L (3.5-5.1)
[2021-04-30 12:58] LABS: CREATINE KINASE MB 1.6 ng/mL (0-5.0)
[2021-04-30] MEDS ORDERED: SODIUM CHLORIDE 0.9% 50ML 50 ML ONE (13:14)
[2021-04-30] MEDS ORDERED: IOPAMIDOL 370 MG/ML 200 ML INFUS..BTL INJ ONE (13:14)
[2021-04-30] MEDS: SODIUM CHLORIDE 0.9% 1000ML 1,000 ML IV SCH ×2 (14:43→23:37)
[2021-04-30] MEDS ORDERED: SODIUM CHLORIDE 0.9% 1000ML 1,000 ML ONE (14:47)
[2021-04-30] MEDS ORDERED: SODIUM CHLORIDE 0.9% 250ML 250 ML ONE (18:22)
[2021-04-30 18:28] VITALS: BP 145/72
[2021-04-30] MEDS: NITROGLYCERIN 0.4 MG SUBL SL PRN ×4 (18:40→23:36)
[2021-04-30 19:57] VITALS: BP 109/60
[2021-04-30 20:00] VITALS: BP 109/60
[2021-04-30] MEDS: ROPINIROLE HCL 0.25 MG TAB PO SCH (20:59)
[2021-04-30 23:27] LABS: CREATINE KINASE MB 1.8 ng/mL (0-5.0)
[2021-04-30 23:53] VITALS: BP 124/72
[2021-05-01] VITALS (19 sets, daily range): BP systolic 95–170; BP diastolic 39–105
[2021-05-01 02:04] LABS: BASOPHILS # (AUTO) 0.1 (0.0-0.1); EOSINOPHILS # (AUTO) 0.1 (0.0-0.4); EOSINOPHILS % 0.9 % (0.0-6.0); HEMATOCRIT 23.7 % (34.2-44.1); HEMOGLOBIN 7.7 g/dL (12.0-16.0); LYMPHOCYTES # (AUTO) 2.2 (1.0-3.2); LYMPHOCYTES % 26.3 % (18.0-39.1); MEAN CORPUSCULAR HEMOGLOBIN 29.4 pg (28-32); MEAN CORPUSCULAR HGB CONC 32.5 g/dL (31-35); MEAN CORPUSCULAR VOLUME 90.5 fL (81-99); MONOCYTES # (AUTO) 1.1 (0.2-0.8); MONOCYTES % 13.1 % (4.4-11.3); NEUTROPHILS # (AUTO) 4.8 (2.1-6.9); NEUTROPHILS % 58.3 % (38.7-80.0); PLATELET COUNT 248 x10e3/uL (140-360); RED BLOOD COUNT 2.62 x10e6/uL (3.6-5.1); RED CELL DISTRIBUTION WIDTH 20.8 % (11.7-14.4)
[2021-05-01] MEDS ORDERED: SODIUM CHLORIDE 0.9% 250ML 250 ML IV ONE (03:45)
[2021-05-01] MEDS: NITROGLYCERIN 0.4 MG SUBL SL PRN ×10 (04:15→13:43)
[2021-05-01] MEDS: LEVOTHYROXINE SODIUM 50 MCG TAB PO SCH (05:46)
[2021-05-01] MEDS ORDERED: ACETAMINOPHEN 325 MG TAB PO PRN (06:00)
[2021-05-01] MEDS: SODIUM CHLORIDE 0.9% 1000ML 1,000 ML IV SCH ×2 (07:42→14:26)
[2021-05-01] MEDS ORDERED: PEG (High)/E-LYTE SOLN 4,000 ML BTL PO ONE (08:00)
[2021-05-01] MEDS ORDERED: SODIUM CHLORIDE 0.9% 250ML 250 ML ONE (08:59)
[2021-05-01] MEDS ORDERED: ONDANSETRON HCL INJ 2MG/ML 2ML 2 MG/ML VIAL IV PRN (09:15)
[2021-05-01] MEDS ORDERED: RANOLAZINE 500 MG TABSR PO SCH (10:00)
[2021-05-01] MEDS ORDERED: ISOSORBIDE MONONITRATE 30 MG TAB CR PO SCH (10:30)
[2021-05-01] MEDS: NITROGLYCERIN 0.1MG/HR PATCH TOP SCH (10:43)
[2021-05-01] MEDS: ALPRAZOLAM 0.25 MG TAB PO PRN (12:11)
[2021-05-01] MEDS: FLUCONAZOLE 100 MG TAB PO SCH (13:23)
[2021-05-01] MEDS ORDERED: LOSARTAN POTASSIUM 25 MG TAB PO SCH (14:00)
[2021-05-01 14:44] LABS: BASOPHILS # (AUTO) 0.1 (0.0-0.1); BASOPHILS % 0.5 % (0.0-1.0); EOSINOPHILS % 0.1 % (0.0-6.0); HEMATOCRIT 29.3 % (34.2-44.1); HEMOGLOBIN 9.7 g/dL (12.0-16.0); LYMPHOCYTES # (AUTO) 1.4 (1.0-3.2); LYMPHOCYTES % 15.3 % (18.0-39.1); MEAN CORPUSCULAR HEMOGLOBIN 29.3 pg (28-32); MEAN CORPUSCULAR HGB CONC 33.1 g/dL (31-35); MEAN CORPUSCULAR VOLUME 88.5 fL (81-99); MONOCYTES # (AUTO) 1.2 (0.2-0.8); MONOCYTES % 12.3 % (4.4-11.3); NEUTROPHILS # (AUTO) 6.7 (2.1-6.9); NEUTROPHILS % 71.2 % (38.7-80.0); PLATELET COUNT 200 x10e3/uL (140-360); RED BLOOD COUNT 3.31 x10e6/uL (3.6-5.1); RED CELL DISTRIBUTION WIDTH 17.7 % (11.7-14.4)
[2021-05-01 15:10] LABS: CREATINE KINASE MB 5.8 ng/mL (0-5.0)
[2021-05-01 15:23] LABS: ANION GAP 13.6 mmol/L (8-16); CALCIUM 8.2 mg/dL (8.4-10.2); CREATININE, SERUM 0.82 mg/dL (0.57-1.11); POTASSIUM 3.6 mmol/L (3.5-5.1)
[2021-05-01 15:35] LABS: % IRON SATURATION 70 % (15-50); IRON 199 ug/dL (50-170); TOTAL IRON BINDING CAPACITY 284 ug/dL (261-478); TRANSFERRIN 203 mg/dL (180-382)
[2021-05-01] MEDS ORDERED: METOPROLOL TARTRATE 50 MG TAB PO SCH (17:00)
[2021-05-01] MEDS: RANOLAZINE 500 MG TABSR PO SCH (17:56)
[2021-05-01 19:17] LABS: HEMATOCRIT 30.2 % (34.2-44.1); HEMOGLOBIN 9.6 g/dL (12.0-16.0)
[2021-05-01] MEDS: ROPINIROLE HCL 0.25 MG TAB PO SCH (20:47)
[2021-05-01] MEDS ORDERED: ATORVASTATIN 20 MG TAB PO SCH (21:00)
[2021-05-02] VITALS (24 sets, daily range): BP systolic 82–172; BP diastolic 40–78
[2021-05-02] MEDS: NITROGLYCERIN 0.4 MG SUBL SL PRN ×9 (03:23→13:14)
[2021-05-02 05:02] LABS: BASOPHILS # (AUTO) 0.1 (0.0-0.1); BASOPHILS % 0.7 % (0.0-1.0); EOSINOPHILS # (AUTO) 0.1 (0.0-0.4); HEMATOCRIT 28.6 % (34.2-44.1); HEMOGLOBIN 9.5 g/dL (12.0-16.0); LYMPHOCYTES # (AUTO) 1.2 (1.0-3.2); MEAN CORPUSCULAR HEMOGLOBIN 29.7 pg (28-32); MEAN CORPUSCULAR HGB CONC 33.2 g/dL (31-35); MEAN CORPUSCULAR VOLUME 89.4 fL (81-99); MONOCYTES # (AUTO) 1.3 (0.2-0.8); MONOCYTES % 15.3 % (4.4-11.3); NEUTROPHILS # (AUTO) 5.5 (2.1-6.9); NEUTROPHILS % 67.5 % (38.7-80.0); PLATELET COUNT 189 x10e3/uL (140-360); RED CELL DISTRIBUTION WIDTH 18.4 % (11.7-14.4)
[2021-05-02 05:16] LABS: INR 1.01; PROTHROMBIN TIME 14.1 seconds (11.9-14.5)
[2021-05-02 05:37] LABS: ALBUMIN 2.6 g/dL (3.5-5.0); ANION GAP 12.4 mmol/L (8-16); CALCIUM 7.8 mg/dL (8.4-10.2); CREATININE, SERUM 0.74 mg/dL (0.57-1.11); POTASSIUM 3.4 mmol/L (3.5-5.1)
[2021-05-02] MEDS: LEVOTHYROXINE SODIUM 50 MCG TAB PO SCH (05:56)
[2021-05-02] MEDS ORDERED: POTASSIUM CHLORIDE 20MEQ/100ML 100 ML IV PRN (09:00)
[2021-05-02] MEDS: NYSTATIN 15 GM POWDER UD BTL TOP SCH ×2 (09:15→17:22)
[2021-05-02] MEDS: NITROGLYCERIN 0.1MG/HR PATCH TOP SCH (10:00)
[2021-05-02] MEDS ORDERED: NITROGLYCERIN 0.4 MG SUBL ONE (12:11)
[2021-05-02] MEDS: ISOSORBIDE MONONITRATE 30 MG TAB CR PO SCH (12:40)
[2021-05-02] MEDS: FLUCONAZOLE 100 MG TAB PO SCH (12:40)
[2021-05-02] MEDS: RANOLAZINE 500 MG TABSR PO SCH ×2 (12:41→17:22)
[2021-05-02] MEDS ORDERED: LIDOCAINE HCL 2% LOCAL INJ 5 ML SDV VIAL INJ ONE (13:11)
[2021-05-02] MEDS ORDERED: PROPOFOL IV EMULSION 10 MG/ML 20 ML VIAL ONE (13:11)
[2021-05-02] MEDS ORDERED: POVIDONE IODINE 0.05% 0.05 % ML PO ONE (13:11)
[2021-05-02] MEDS: ALPRAZOLAM 0.25 MG TAB PO PRN ×2 (13:24→20:18)
[2021-05-02] MEDS ORDERED: POTASSIUM CHLORIDE 20 MEQ TAB CR PO ONE (13:55)
[2021-05-02] MEDS: METOPROLOL TARTRATE 50 MG TAB PO SCH ×2 (17:00→17:21)
[2021-05-02] MEDS: ROPINIROLE HCL 0.25 MG TAB PO SCH (20:17)
[2021-05-02] MEDS: ATORVASTATIN 40 MG TAB PO SCH (20:17)
[2021-05-03] VITALS (14 sets, daily range): BP systolic 98–161; BP diastolic 57–95
[2021-05-03 04:59] LABS: BASOPHILS % 0.5 % (0.0-1.0); EOSINOPHILS # (AUTO) 0.1 (0.0-0.4); EOSINOPHILS % 0.9 % (0.0-6.0); HEMATOCRIT 24.9 % (34.2-44.1); HEMOGLOBIN 8.2 g/dL (12.0-16.0); LYMPHOCYTES # (AUTO) 1.2 (1.0-3.2); LYMPHOCYTES % 16.2 % (18.0-39.1); MEAN CORPUSCULAR HGB CONC 32.9 g/dL (31-35); MEAN CORPUSCULAR VOLUME 91.2 fL (81-99); MONOCYTES % 12.8 % (4.4-11.3); NEUTROPHILS # (AUTO) 5.1 (2.1-6.9); NEUTROPHILS % 69.1 % (38.7-80.0); PLATELET COUNT 196 x10e3/uL (140-360); RED BLOOD COUNT 2.73 x10e6/uL (3.6-5.1); RED CELL DISTRIBUTION WIDTH 18.6 % (11.7-14.4)
[2021-05-03 05:26] LABS: ALBUMIN 2.4 g/dL (3.5-5.0); ANION GAP 11.1 mmol/L (8-16); CALCIUM 7.9 mg/dL (8.4-10.2); CREATININE, SERUM 0.7 mg/dL (0.57-1.11); POTASSIUM 4.1 mmol/L (3.5-5.1)
[2021-05-03] MEDS: LEVOTHYROXINE SODIUM 50 MCG TAB PO SCH (05:39)
[2021-05-03] MEDS: FLUCONAZOLE 100 MG TAB PO SCH (08:29)
[2021-05-03] MEDS: METOPROLOL TARTRATE 50 MG TAB PO SCH ×2 (08:30→20:32)
[2021-05-03] MEDS: ISOSORBIDE MONONITRATE 30 MG TAB CR PO SCH (08:30)
[2021-05-03] MEDS: NITROGLYCERIN 0.1MG/HR PATCH TOP SCH (08:34)
[2021-05-03] MEDS: NYSTATIN 15 GM POWDER UD BTL TOP SCH ×2 (08:42→17:23)
[2021-05-03] MEDS: RANOLAZINE 500 MG TABSR PO SCH ×2 (08:42→20:33)
[2021-05-03] MEDS: ATORVASTATIN 40 MG TAB PO SCH (20:28)
[2021-05-03] MEDS: ROPINIROLE HCL 0.25 MG TAB PO SCH (20:30)
[2021-05-04 04:20] VITALS: BP 152/74
[2021-05-04] MEDS: LEVOTHYROXINE SODIUM 50 MCG TAB PO SCH (05:46)
[2021-05-04] MEDS: NITROGLYCERIN 0.1MG/HR PATCH TOP SCH (07:40)
[2021-05-04 08:42] LABS: BASOPHILS % 0.4 % (0.0-1.0); EOSINOPHILS # (AUTO) 0.1 (0.0-0.4); EOSINOPHILS % 1.1 % (0.0-6.0); HEMATOCRIT 26.1 % (34.2-44.1); HEMOGLOBIN 8.4 g/dL (12.0-16.0); LYMPHOCYTES # (AUTO) 1.1 (1.0-3.2); LYMPHOCYTES % 12.1 % (18.0-39.1); MEAN CORPUSCULAR HEMOGLOBIN 29.6 pg (28-32); MEAN CORPUSCULAR HGB CONC 32.2 g/dL (31-35); MEAN CORPUSCULAR VOLUME 91.9 fL (81-99); MONOCYTES # (AUTO) 1.3 (0.2-0.8); MONOCYTES % 14.1 % (4.4-11.3); NEUTROPHILS # (AUTO) 6.4 (2.1-6.9); NEUTROPHILS % 71.9 % (38.7-80.0); PLATELET COUNT 222 x10e3/uL (140-360); RED BLOOD COUNT 2.84 x10e6/uL (3.6-5.1); RED CELL DISTRIBUTION WIDTH 18.9 % (11.7-14.4)
[2021-05-04] MEDS: FLUCONAZOLE 100 MG TAB PO SCH (09:00)
[2021-05-04] MEDS: ISOSORBIDE MONONITRATE 30 MG TAB CR PO SCH (09:02)
[2021-05-04] MEDS: METOPROLOL TARTRATE 50 MG TAB PO SCH ×2 (09:03→21:00)
[2021-05-04] MEDS: RANOLAZINE 500 MG TABSR PO SCH ×2 (09:03→21:01)
[2021-05-04] MEDS: NYSTATIN 15 GM POWDER UD BTL TOP SCH ×2 (09:04→17:11)
[2021-05-04 09:13] VITALS: BP 175/83
[2021-05-04] MEDS ORDERED: SODIUM CHLORIDE 0.9% 250ML 250 ML IV ONE (09:15)
[2021-05-04] MEDS ORDERED: SODIUM CHLORIDE 0.9% 250ML 250 ML ONE (13:22)
[2021-05-04] MEDS ORDERED: FUROSEMIDE INJ 10 MG/ML 2 ML VIAL IV ONE (17:30)
[2021-05-04] MEDS: IPRATROPIUM BROMIDE 0.02% 2.5 ML NEB NEB SCH (19:39)
[2021-05-04 20:00] VITALS: BP 169/88
[2021-05-04] MEDS: ATORVASTATIN 40 MG TAB PO SCH (21:00)
[2021-05-04] MEDS: ROPINIROLE HCL 0.25 MG TAB PO SCH (21:01)
[2021-05-05] VITALS (7 sets, daily range): BP systolic 141–163; BP diastolic 63–91
[2021-05-05 05:50] LABS: BASOPHILS % 0.3 % (0.0-1.0); EOSINOPHILS # (AUTO) 0.1 (0.0-0.4); HEMATOCRIT 28.2 % (34.2-44.1); HEMOGLOBIN 9.6 g/dL (12.0-16.0); LYMPHOCYTES # (AUTO) 1.3 (1.0-3.2); LYMPHOCYTES % 13.6 % (18.0-39.1); MEAN CORPUSCULAR HEMOGLOBIN 30.7 pg (28-32); MEAN CORPUSCULAR VOLUME 90.1 fL (81-99); MONOCYTES # (AUTO) 1.2 (0.2-0.8); MONOCYTES % 13.4 % (4.4-11.3); NEUTROPHILS # (AUTO) 6.5 (2.1-6.9); NEUTROPHILS % 71.2 % (38.7-80.0); PLATELET COUNT 222 x10e3/uL (140-360); RED BLOOD COUNT 3.13 x10e6/uL (3.6-5.1); RED CELL DISTRIBUTION WIDTH 18.9 % (11.7-14.4)
[2021-05-05] MEDS: FUROSEMIDE INJ 10 MG/ML 2 ML VIAL IV SCH ×2 (06:13→17:21)
[2021-05-05] MEDS: LEVOTHYROXINE SODIUM 50 MCG TAB PO SCH (06:13)
[2021-05-05 06:24] LABS: ALBUMIN 2.7 g/dL (3.5-5.0); ALBUMIN/GLOBULIN RATIO 0.9 (0.8-2.0); ANION GAP 12.2 mmol/L (8-16); CALCIUM 8.4 mg/dL (8.4-10.2); CREATININE, SERUM 0.74 mg/dL (0.57-1.11); POTASSIUM 4.2 mmol/L (3.5-5.1)
[2021-05-05] MEDS: IPRATROPIUM BROMIDE 0.02% 2.5 ML NEB NEB SCH ×3 (07:15→19:38)
[2021-05-05] MEDS: FLUCONAZOLE 100 MG TAB PO SCH (09:02)
[2021-05-05] MEDS: ISOSORBIDE MONONITRATE 30 MG TAB CR PO SCH (09:03)
[2021-05-05] MEDS: RANOLAZINE 500 MG TABSR PO SCH ×2 (09:04→20:50)
[2021-05-05] MEDS: METOPROLOL TARTRATE 50 MG TAB PO SCH ×2 (09:04→20:50)
[2021-05-05] MEDS: NYSTATIN 15 GM POWDER UD BTL TOP SCH ×2 (09:05→17:21)
[2021-05-05] MEDS: NITROGLYCERIN 0.1MG/HR PATCH TOP SCH (09:05)
[2021-05-05 13:38] LABS: CLARITY,URINE CLEAR (CLEAR); COLOR,URINE YELLOW (YELLOW); KETONES,URINE NEGATIVE (NEGATIVE); LEUKOCYTE ESTERASE ,URINE TRACE (NEGATIVE); NITRITE,URINE NEGATIVE (NEGATIVE); PROTEIN,URINE DIPSTICK NEGATIVE (NEGATIVE); URINE UROBILINOGEN 0.2 mg/dL (0.2 - 1)
[2021-05-05 13:53] LABS: BACTERIA,URINE RARE /HPF; EPITHELIAL CELLS,URINE FEW /LPF; RBC,URINE 0-5 /HPF (0-5); WBC,URINE (MAN) 0-5 /HPF (0-5)
[2021-05-05] MEDS: ATORVASTATIN 40 MG TAB PO SCH (20:49)
[2021-05-05] MEDS: ROPINIROLE HCL 0.25 MG TAB PO SCH (20:51)
[2021-05-05] MEDS: ALPRAZOLAM 0.25 MG TAB PO PRN (22:20)
[2021-05-06] VITALS (8 sets, daily range): BP systolic 140–175; BP diastolic 68–88
[2021-05-06 05:38] LABS: BASOPHILS # (AUTO) 0.1 (0.0-0.1); BASOPHILS % 0.5 % (0.0-1.0); EOSINOPHILS # (AUTO) 0.2 (0.0-0.4); HEMATOCRIT 30.2 % (34.2-44.1); HEMOGLOBIN 9.7 g/dL (12.0-16.0); LYMPHOCYTES # (AUTO) 1.3 (1.0-3.2); LYMPHOCYTES % 14.1 % (18.0-39.1); MEAN CORPUSCULAR HGB CONC 32.1 g/dL (31-35); MEAN CORPUSCULAR VOLUME 93.5 fL (81-99); MONOCYTES # (AUTO) 1.2 (0.2-0.8); MONOCYTES % 12.8 % (4.4-11.3); NEUTROPHILS # (AUTO) 6.4 (2.1-6.9); NEUTROPHILS % 70.3 % (38.7-80.0); PLATELET COUNT 265 x10e3/uL (140-360); RED BLOOD COUNT 3.23 x10e6/uL (3.6-5.1); RED CELL DISTRIBUTION WIDTH 18.7 % (11.7-14.4)
[2021-05-06 06:04] LABS: ALBUMIN 2.7 g/dL (3.5-5.0); ALBUMIN/GLOBULIN RATIO 0.8 (0.8-2.0); ANION GAP 10.2 mmol/L (8-16); CALCIUM 8.5 mg/dL (8.4-10.2); CREATININE, SERUM 0.73 mg/dL (0.57-1.11); MAGNESIUM 1.8 MG/DL (1.3-2.1); POTASSIUM 4.2 mmol/L (3.5-5.1)
[2021-05-06] MEDS: LEVOTHYROXINE SODIUM 50 MCG TAB PO SCH (06:53)
[2021-05-06] MEDS: FUROSEMIDE INJ 10 MG/ML 2 ML VIAL IV SCH ×2 (06:53→17:50)
[2021-05-06] MEDS: IPRATROPIUM BROMIDE 0.02% 2.5 ML NEB NEB SCH ×3 (07:00→21:30)
[2021-05-06] MEDS ORDERED: ONDANSETRON HCL 4 MG ORAL DISINTEGRATING TAB PO PRN (07:30)
[2021-05-06] MEDS: ISOSORBIDE MONONITRATE 30 MG TAB CR PO SCH (09:02)
[2021-05-06] MEDS: RANOLAZINE 500 MG TABSR PO SCH ×2 (09:02→21:11)
[2021-05-06] MEDS: METOPROLOL TARTRATE 50 MG TAB PO SCH ×2 (09:02→21:10)
[2021-05-06] MEDS: FLUCONAZOLE 100 MG TAB PO SCH (09:02)
[2021-05-06] MEDS: NITROGLYCERIN 0.1MG/HR PATCH TOP SCH (09:03)
[2021-05-06] MEDS: NYSTATIN 15 GM POWDER UD BTL TOP SCH ×2 (09:30→17:00)
[2021-05-06] MEDS: ATORVASTATIN 40 MG TAB PO SCH (20:29)
[2021-05-06] MEDS: ROPINIROLE HCL 0.25 MG TAB PO SCH (21:11)
[2021-05-07] VITALS: BP 145/61
[2021-05-07 04:00] VITALS: BP 154/73
[2021-05-07] MEDS: FUROSEMIDE INJ 10 MG/ML 2 ML VIAL IV SCH ×2 (06:00→06:12)
[2021-05-07] MEDS: LEVOTHYROXINE SODIUM 50 MCG TAB PO SCH (06:12)
[2021-05-07] MEDS: IPRATROPIUM BROMIDE 0.02% 2.5 ML NEB NEB SCH (07:50)
[2021-05-07 08:00] VITALS: BP 139/67
[2021-05-07] MEDS: FLUCONAZOLE 100 MG TAB PO SCH (08:33)
[2021-05-07] MEDS: METOPROLOL TARTRATE 50 MG TAB PO SCH (08:34)
[2021-05-07] MEDS: ISOSORBIDE MONONITRATE 30 MG TAB CR PO SCH (08:34)
[2021-05-07] MEDS: RANOLAZINE 500 MG TABSR PO SCH (08:35)
[2021-05-07] MEDS: NITROGLYCERIN 0.1MG/HR PATCH TOP SCH (08:35)
[2021-05-07] MEDS: NYSTATIN 15 GM POWDER UD BTL TOP SCH (08:36)
[2021-05-07 08:38] VITALS: BP 139/67
== END 2021-05-07 12:45 | disposition home or self-care (01) | DRG 377 ==
LOC: ER 12:21 → ERHOLD 14:31 → MED/SURG2 17:23 → ICU 05-01 03:48 → MED/SURG 05-03 09:56
PROVIDERS: ADMIT Internal Medicine; ATTEND Internal Medicine
PROC: 30233N1 Transfusion of Nonautologous Red Blood Cells into Peripheral Vein, Percutaneous Approach (ICD-10-PCS; 2021-04-30)
PROC: 0DJ08ZZ Inspection of Upper Intestinal Tract, Via Natural or Artificial Opening Endoscopic (ICD-10-PCS; 2021-05-01)
PROC: 0DJD8ZZ Inspection of Lower Intestinal Tract, Via Natural or Artificial Opening Endoscopic (ICD-10-PCS; principal; 2021-05-02 12:00)
DX: K57.31 Diverticulosis of large intestine without perforation or abscess with bleeding (principal); I50.23 Acute on chronic systolic (congestive) heart failure; B37.81 Candidal esophagitis; I25.110 Atherosclerotic heart disease of native coronary artery with unstable angina pectoris; D62 Acute posthemorrhagic anemia; K55.21 Angiodysplasia of colon with hemorrhage; E86.0 Dehydration; I11.0 Hypertensive heart disease with heart failure; K64.1 Second degree hemorrhoids; K22.2 Esophageal obstruction; K20.90 Esophagitis, unspecified without bleeding; K44.9 Diaphragmatic hernia without obstruction or gangrene; K31.819 Angiodysplasia of stomach and duodenum without bleeding; E03.9 Hypothyroidism, unspecified; E78.5 Hyperlipidemia, unspecified; G25.81 Restless legs syndrome; Z88.5 Allergy status to narcotic agent; Z88.0 Allergy status to penicillin; Z82.49 Family history of ischemic heart disease and other diseases of the circulatory system; F41.9 Anxiety disorder, unspecified; K29.70 Gastritis, unspecified, without bleeding; R09.02 Hypoxemia
CPT/HCPCS: 36415; 43255; 45378; 71045; 74177; 80048; 80053; 81001; 82550; 82553; 83540; 83735; 83880; 84466; 84484; 85014; 85018; 85025; 85610; 85730; 86850; 86900; 86920; 93005; 94640; 94799; 99251; 99284; J1940; J2001; J2405; J3480; J7030; J7050; P9016; Q9967; U0002